=== PATIENT | male | born 1960 | race Caucasian/White ===

== ENCOUNTER → 2017-02-16 | Outpatient (CLI) | payer OTHER, SELFPAY ==
[2017-02-16 13:56] LABS: MEAN CORPUSCULAR HEMOGLOBIN 29.8 pg (27.0-33.0); MEAN CORPUSCULAR HGB CONC 33.9 g/dl (32.0-36.5); RED CELL DISTRIBUTION WIDTH 12.6 % (11.5-14.5); WHITE BLOOD COUNT 6.9 K/mm3 (4.0-10.0)
[2017-02-16 14:14] LABS: ANION GAP 8 MEQ/L (8-16); BLOOD UREA NITROGEN 15 MG/DL (7-18); CALCIUM LEVEL 8.4 MG/DL (8.5-10.1); CARBON DIOXIDE LEVEL 30 MEQ/L (21-32); CHLORIDE LEVEL 103 MEQ/L (98-107); CREATININE FOR GFR 0.91 MG/DL (0.70-1.30); GLOMERULAR FILTRATION RATE > 60.0 (>56); GLUCOSE, FASTING 92 MG/DL (70-105); POTASSIUM SERUM 3.8 MEQ/L (3.5-5.1); SODIUM LEVEL 141 MEQ/L (136-145)
== END ==
LOC: M LAB 13:34
PROVIDERS: ATTEND Internal Medicine Cardiovascular Disease
DX: I42.9 Cardiomyopathy, unspecified (principal)

== ENCOUNTER → 2017-09-05 | Outpatient (REF) | payer OTHER ==
[2017-09-05 15:09] LABS: BASO # 0.1 10^3/uL (0.0-0.2); BASO % 0.8 % (0.0-1.0); EOS # 0.2 10^3/uL (0.0-0.50); EOS % 2.9 % (0.0-3.0); IMMATURE GRANULOCYTE % 0.4 % (0-0); LYMPH # 2.2 10^3/uL (1.5-4.5); LYMPH % 27.9 % (24.0-44.0); MEAN CORPUSCULAR HEMOGLOBIN 28.7 pg (27.0-33.0); MEAN CORPUSCULAR HGB CONC 32.3 g/dl (32.0-36.5); MEAN CORPUSCULAR VOLUME 88.9 fl (80.0-96.0); MONO # 0.5 10^3/uL (0.0-0.8); MONO % 6.1 % (0.0-5.0); NEUTROPHILS # 4.9 10^3/uL (1.8-7.7); NEUTROPHILS % 61.9 % (36.0-66.0); PLATELET COUNT, AUTOMATED 247 10^3/uL (150-450); RED CELL DISTRIBUTION WIDTH 12.2 % (11.5-14.5)
[2017-09-05 15:22] LABS: ALBUMIN 3.9 GM/DL (3.2-5.2); ALBUMIN/GLOBULIN RATIO 1.44 (1.00-1.93); ALKALINE PHOSPHATASE 94 U/L (45-117); ALT/SGPT 26 U/L (12-78); ANION GAP 6 MEQ/L (8-16); AST/SGOT 12 U/L (7-37); BILIRUBIN,TOTAL 0.5 MG/DL (0.2-1.0); BLOOD UREA NITROGEN 10 MG/DL (7-18); CALCIUM LEVEL 9.3 MG/DL (8.5-10.1); CARBON DIOXIDE LEVEL 31 MEQ/L (21-32); CHLORIDE LEVEL 105 MEQ/L (98-107); CHOLESTEROL LEVEL 159 MG/DL (<200); CREATININE FOR GFR 0.86 MG/DL (0.70-1.30); GLOMERULAR FILTRATION RATE > 60.0 (>56); GLUCOSE, FASTING 95 MG/DL (70-105); POTASSIUM SERUM 4.5 MEQ/L (3.5-5.1); SODIUM LEVEL 142 MEQ/L (136-145); TOTAL PROTEIN 6.6 GM/DL (6.4-8.2); TRIGLYCERIDES LEVEL 178 MG/DL (<150)
== END ==
LOC: M SFHCSACK 09:47
PROVIDERS: ATTEND Physician Assistant
DX: E78.2 Mixed hyperlipidemia (principal); I10 Essential (primary) hypertension; Z11.59 Encounter for screening for other viral diseases; Z13.21 Encounter for screening for nutritional disorder; R97.20 Elevated prostate specific antigen [PSA]

== ENCOUNTER → 2017-12-19 | Outpatient (REF) | payer OTHER ==
[2017-12-19 14:46] LABS: BASO # 0.1 10^3/uL (0.0-0.2); BASO % 0.7 % (0.0-1.0); EOS # 0.2 10^3/uL (0.0-0.50); EOS % 2.4 % (0.0-3.0); HEMATOCRIT 43.5 % (42.0-52.0); HEMOGLOBIN 14.3 g/dl (14.0-18.0); IMMATURE GRANULOCYTE % 0.7 % (0-3.0); LYMPH # 2.3 10^3/uL (1.5-4.5); LYMPH % 26.7 % (24.0-44.0); MEAN CORPUSCULAR HEMOGLOBIN 28.8 pg (27.0-33.0); MEAN CORPUSCULAR HGB CONC 32.9 g/dl (32.0-36.5); MEAN CORPUSCULAR VOLUME 87.5 fl (80.0-96.0); MONO # 0.6 10^3/uL (0.0-0.8); MONO % 6.4 % (0.0-5.0); NEUTROPHILS # 5.6 10^3/uL (1.8-7.7); NEUTROPHILS % 63.1 % (36.0-66.0); PLATELET COUNT, AUTOMATED 193 10^3/uL (150-450); RED BLOOD COUNT 4.97 10^6/uL (4.30-6.10); RED CELL DISTRIBUTION WIDTH 12.5 % (11.5-14.5); WHITE BLOOD COUNT 8.8 10^3/uL (4.0-10.0)
[2017-12-19 15:10] LABS: ALBUMIN 4.1 GM/DL (3.2-5.2); ALBUMIN/GLOBULIN RATIO 1.24 (1.00-1.93); ALKALINE PHOSPHATASE 99 U/L (45-117); ALT/SGPT 28 U/L (12-78); ANION GAP 5 MEQ/L (8-16); AST/SGOT 18 U/L (7-37); BILIRUBIN,TOTAL 0.7 MG/DL (0.2-1.0); BLOOD UREA NITROGEN 11 MG/DL (7-18); CALCIUM LEVEL 9.1 MG/DL (8.5-10.1); CARBON DIOXIDE LEVEL 32 MEQ/L (21-32); CHLORIDE LEVEL 105 MEQ/L (98-107); CHOLESTEROL LEVEL 162 MG/DL (<200); CHOLESTEROL RISK RATIO 3.951 (<5); CREATININE FOR GFR 0.83 MG/DL (0.70-1.30); GLOMERULAR FILTRATION RATE > 60.0 (>56); GLUCOSE, FASTING 94 MG/DL (70-100); HDL CHOLESTEROL 41 MG/DL (>40); LDL CHOLESTEROL 79.8 MG/DL (<100); NON-HDL-C 121 MG/DL; POTASSIUM SERUM 4.3 MEQ/L (3.5-5.1); SODIUM LEVEL 142 MEQ/L (136-145); TOTAL 25(OH) VITAMIN D 52.8 NG/ML (30.0-100.0); TOTAL PROTEIN 7.4 GM/DL (6.4-8.2); TRIGLYCERIDES LEVEL 206 MG/DL (<150)
== END ==
LOC: M SFHCSACK 08:45
DX: I10 Essential (primary) hypertension (principal); E78.2 Mixed hyperlipidemia; E55.9 Vitamin D deficiency, unspecified

== ENCOUNTER → 2018-03-29 | Outpatient (REF) | payer OTHER ==
[2018-03-29 12:09] LABS: BASO # 0.1 10^3/uL (0.0-0.2); BASO % 0.8 % (0.0-1.0); EOS # 0.3 10^3/uL (0.0-0.50); EOS % 3.2 % (0.0-3.0); HEMATOCRIT 39.6 % (42.0-52.0); HEMOGLOBIN 13.2 g/dl (13.5-17.5); IMMATURE GRANULOCYTE % 0.8 % (0-3.0); LYMPH # 2.4 10^3/uL (1.5-4.5); LYMPH % 30.8 % (24.0-44.0); MEAN CORPUSCULAR HEMOGLOBIN 29.5 pg (27.0-33.0); MEAN CORPUSCULAR HGB CONC 33.3 g/dl (32.0-36.5); MEAN CORPUSCULAR VOLUME 88.4 fl (80.0-96.0); MONO # 0.6 10^3/uL (0.0-0.8); MONO % 7.4 % (0.0-5.0); NEUTROPHILS # 4.5 10^3/uL (1.8-7.7); PLATELET COUNT, AUTOMATED 223 10^3/uL (150-450); RED BLOOD COUNT 4.48 10^6/uL (4.30-6.10); RED CELL DISTRIBUTION WIDTH 12.3 % (11.5-14.5); WHITE BLOOD COUNT 7.9 10^3/uL (4.0-10.0)
[2018-03-29 12:37] LABS: ALBUMIN 3.9 GM/DL (3.2-5.2); ALBUMIN/GLOBULIN RATIO 1.26 (1.00-1.93); ALKALINE PHOSPHATASE 96 U/L (45-117); ALT/SGPT 23 U/L (12-78); ANION GAP 6 MEQ/L (8-16); AST/SGOT 15 U/L (7-37); BILIRUBIN,TOTAL 0.6 MG/DL (0.2-1.0); BLOOD UREA NITROGEN 14 MG/DL (7-18); CARBON DIOXIDE LEVEL 30 MEQ/L (21-32); CHLORIDE LEVEL 107 MEQ/L (98-107); CHOLESTEROL LEVEL 140 MG/DL (<200); CREATININE FOR GFR 0.94 MG/DL (0.70-1.30); GLOMERULAR FILTRATION RATE > 60.0 (>49); GLUCOSE, FASTING 96 MG/DL (70-100); HDL CHOLESTEROL 35 MG/DL (>40); NON-HDL-C 105 MG/DL; POTASSIUM SERUM 4.5 MEQ/L (3.5-5.1); PSA SCREENING 5.39 NG/ML (< 4.0); SODIUM LEVEL 143 MEQ/L (136-145); TRIGLYCERIDES LEVEL 200 MG/DL (<150)
== END ==
LOC: M SFHCADAM 09:48
DX: E78.2 Mixed hyperlipidemia (principal); I10 Essential (primary) hypertension; N40.1 Benign prostatic hyperplasia with lower urinary tract symptoms

== ENCOUNTER 2018-05-18 09:38 | Emergency (ER) | payer OTHER | END 2018-05-18 12:04 | disposition home or self-care (01) | LOC: M ED 09:38 | DX: H53.9 Unspecified visual disturbance (principal); I10 Essential (primary) hypertension; D68.59 Other primary thrombophilia; E78.00 Pure hypercholesterolemia, unspecified; K21.9 Gastro-esophageal reflux disease without esophagitis; N40.0 Benign prostatic hyperplasia without lower urinary tract symptoms; M19.90 Unspecified osteoarthritis, unspecified site; Z95.0 Presence of cardiac pacemaker; Z86.718 Personal history of other venous thrombosis and embolism; Z79.899 Other long term (current) drug therapy; Z79.82 Long term (current) use of aspirin | CPT/HCPCS: 99283 ==

== ENCOUNTER → 2018-07-08 | Outpatient (REF) | payer OTHER ==
[2018-07-08 14:57] LABS: BASO # 0.1 10^3/uL (0.0-0.2); BASO % 0.8 % (0.0-1.0); EOS # 0.3 10^3/uL (0.0-0.50); EOS % 3.7 % (0.0-3.0); HEMATOCRIT 40.3 % (42.0-52.0); HEMOGLOBIN 13.1 g/dl (13.5-17.5); IMMATURE GRANULOCYTE % 0.7 % (0-3.0); LYMPH # 2.2 10^3/uL (1.5-4.5); LYMPH % 28.3 % (24.0-44.0); MEAN CORPUSCULAR HGB CONC 32.5 g/dl (32.0-36.5); MEAN CORPUSCULAR VOLUME 89.2 fl (80.0-96.0); MONO # 0.5 10^3/uL (0.0-0.8); NEUTROPHILS # 4.5 10^3/uL (1.8-7.7); NEUTROPHILS % 59.5 % (36.0-66.0); PLATELET COUNT, AUTOMATED 229 10^3/uL (150-450); RED BLOOD COUNT 4.52 10^6/uL (4.30-6.10); RED CELL DISTRIBUTION WIDTH 12.2 % (11.5-14.5); WHITE BLOOD COUNT 7.6 10^3/uL (4.0-10.0)
[2018-07-08 15:29] LABS: ALBUMIN 4.1 GM/DL (3.2-5.2); ALBUMIN/GLOBULIN RATIO 1.46 (1.00-1.93); ALKALINE PHOSPHATASE 83 U/L (45-117); ALT/SGPT 19 U/L (12-78); ANION GAP 7 MEQ/L (8-16); AST/SGOT 14 U/L (7-37); BILIRUBIN,TOTAL 0.4 MG/DL (0.2-1.0); BLOOD UREA NITROGEN 19 MG/DL (7-18); CALCIUM LEVEL 8.8 MG/DL (8.8-10.2); CARBON DIOXIDE LEVEL 27 MEQ/L (21-32); CHLORIDE LEVEL 107 MEQ/L (98-107); CHOLESTEROL LEVEL 205 MG/DL (<200); CHOLESTEROL RISK RATIO 6.406 (<5); CREATININE FOR GFR 0.87 MG/DL (0.70-1.30); GLOMERULAR FILTRATION RATE > 60.0 (>49); GLUCOSE, FASTING 86 MG/DL (70-100); HDL CHOLESTEROL 32 MG/DL (>40); LDL CHOLESTEROL 112 MG/DL (<100); NON-HDL-C 173 MG/DL; POTASSIUM SERUM 5.5 MEQ/L (3.5-5.1); SODIUM LEVEL 141 MEQ/L (136-145); TOTAL PROTEIN 6.9 GM/DL (6.4-8.2); TRIGLYCERIDES LEVEL 305 MG/DL (<150)
[2018-07-08 15:34] LABS: TOTAL 25(OH) VITAMIN D 63.3 NG/ML (30.0-100.0)
== END ==
LOC: M SFHCSACK 08:12
DX: I10 Essential (primary) hypertension (principal); E78.2 Mixed hyperlipidemia; E55.9 Vitamin D deficiency, unspecified

== ENCOUNTER → 2018-07-30 | Outpatient (CLI) | payer OTHER | LOC: M SMT 08:57 | DX: Z53.8 Procedure and treatment not carried out for other reasons (principal) ==

== ENCOUNTER → 2018-12-18 | Outpatient (CLI) | payer OTHER ==
[~2018-12-18] MED LIST: ASPI1TAB PO; ATOR40TA75; CARV25TA; CO Q200C7 PO; ENTR1TAB4; FINA5TAB2; FURO20TA2; PANT40TA3; VITA50005
--- NOTE | 2018-12-19 02:37 | REP ---
Clinical: Cough . Comparison: 12/03/2015 . Technique: PA and lateral. Findings: The mediastinum and cardiac silhouette are normal. Pacemaker in satisfactory position The lung chew are clear and without acute consolidation, effusion, or pneumothorax. The skeletal structures are intact and normal. Impression: 1. No acute cardiopulmonary process. Electronically Signed by Chon Schultz MD 12/19/2018 02:29 A
== END ==
LOC: M WUC 16:12
PROVIDERS: ATTEND Physician Assistant
DX: R05 Cough (principal); Z95.0 Presence of cardiac pacemaker

== ENCOUNTER → 2019-01-13 | Outpatient (REF) | payer OTHER ==
[2019-01-13 14:13] LABS: BASO # 0.1 10^3/uL (0.0-0.2); BASO % 0.8 % (0.0-1.0); EOS # 0.4 10^3/uL (0.0-0.50); HEMATOCRIT 41.3 % (42.0-52.0); HEMOGLOBIN 13.4 g/dl (13.5-17.5); LYMPH # 2.3 10^3/uL (1.5-4.5); LYMPH % 26.1 % (24.0-44.0); MEAN CORPUSCULAR HEMOGLOBIN 28.7 pg (27.0-33.0); MEAN CORPUSCULAR HGB CONC 32.4 g/dl (32.0-36.5); MEAN CORPUSCULAR VOLUME 88.4 fl (80.0-96.0); MONO # 0.5 10^3/uL (0.0-0.8); MONO % 5.8 % (0.0-5.0); NEUTROPHILS # 5.4 10^3/uL (1.8-7.7); NEUTROPHILS % 61.4 % (36.0-66.0); PLATELET COUNT, AUTOMATED 231 10^3/uL (150-450); RED BLOOD COUNT 4.67 10^6/uL (4.30-6.10); WHITE BLOOD COUNT 8.8 10^3/uL (4.0-10.0)
[2019-01-13 14:24] LABS: ALBUMIN 3.8 GM/DL (3.2-5.2); ALT/SGPT 20 U/L (12-78); BILIRUBIN,TOTAL 0.4 MG/DL (0.2-1.0); BLOOD UREA NITROGEN 16 MG/DL (7-18); CALCIUM LEVEL 8.5 MG/DL (8.8-10.2); CARBON DIOXIDE LEVEL 29 MEQ/L (21-32); CHLORIDE LEVEL 109 MEQ/L (98-107); CHOLESTEROL LEVEL 230 MG/DL (<200); CHOLESTEROL RISK RATIO 6.216 (<5); GLOMERULAR FILTRATION RATE > 60.0 (>49); GLUCOSE, FASTING 99 MG/DL (70-100); HDL CHOLESTEROL 37 MG/DL (>40); LDL CHOLESTEROL 130 MG/DL (<100); NON-HDL-C 193 MG/DL; POTASSIUM SERUM 4.4 MEQ/L (3.5-5.1); SODIUM LEVEL 143 MEQ/L (136-145); TOTAL PROTEIN 6.8 GM/DL (6.4-8.2); TRIGLYCERIDES LEVEL 315 MG/DL (<150)
[2019-01-13 14:31] LABS: TOTAL 25(OH) VITAMIN D 58.7 NG/ML (30.0-100.0)
[2019-01-14 14:53] LABS: PSA % FREE 16.3 % (.); PSA FREE 0.78 ng/mL; PSA TOTAL 4.8 ng/mL (0.0-4.0)
== END ==
LOC: M SFHCSACK 08:38
PROVIDERS: ATTEND Physician Assistant
DX: E78.2 Mixed hyperlipidemia (principal); R97.20 Elevated prostate specific antigen [PSA]; E55.9 Vitamin D deficiency, unspecified; N42.9 Disorder of prostate, unspecified

== ENCOUNTER → 2019-03-28 | Outpatient (CLI) | payer OTHER ==
[~2019-03-28] MED LIST changes: -ASPI1TAB PO; +ASPI81TA26 PO; -CO Q200C7 PO; +COQ1200C3 PO
[2019-03-28 20:10] LABS: BASO # 0.1 10^3/uL (0.0-0.2); BASO % 0.6 % (0.0-1.0); EOS # 0.3 10^3/uL (0.0-0.50); EOS % 3.4 % (0.0-3.0); HEMATOCRIT 38.5 % (42.0-52.0); HEMOGLOBIN 12.7 g/dl (13.5-17.5); LYMPH # 2.7 10^3/uL (1.5-4.5); LYMPH % 31.7 % (24.0-44.0); MEAN CORPUSCULAR HEMOGLOBIN 29.5 pg (27.0-33.0); MEAN CORPUSCULAR VOLUME 89.5 fl (80.0-96.0); MONO # 0.6 10^3/uL (0.0-0.8); MONO % 7.2 % (0.0-5.0); NEUTROPHILS # 4.7 10^3/uL (1.8-7.7); NEUTROPHILS % 56.5 % (36.0-66.0); PLATELET COUNT, AUTOMATED 236 10^3/uL (150-450); WHITE BLOOD COUNT 8.4 10^3/uL (4.0-10.0)
== END ==
LOC: M WUC 17:12
PROVIDERS: ATTEND Physician Assistant
DX: L04.0 Acute lymphadenitis of face, head and neck (principal)

== ENCOUNTER → 2019-07-30 | Outpatient (REF) | payer OTHER ==
[2019-07-30 14:28] LABS: BASO # 0.1 10^3/uL (0.0-0.2); BASO % 0.7 % (0.0-1.0); EOS # 0.3 10^3/uL (0.0-0.5); EOS % 2.9 % (0.0-3.0); HEMATOCRIT 40.2 % (42.0-52.0); HEMOGLOBIN 13.4 g/dl (13.5-17.5); LYMPH # 2.5 10^3/uL (1.5-5.0); LYMPH % 28.7 % (24.0-44.0); MEAN CORPUSCULAR HEMOGLOBIN 29.6 pg (27.0-33.0); MEAN CORPUSCULAR HGB CONC 33.3 g/dl (32.0-36.5); MEAN CORPUSCULAR VOLUME 88.9 fl (80.0-96.0); MONO # 0.5 10^3/uL (0.0-0.8); MONO % 6.3 % (0.0-5.0); NEUTROPHILS # 5.1 10^3/uL (1.5-8.5); NEUTROPHILS % 60.1 % (36.0-66.0); PLATELET COUNT, AUTOMATED 247 10^3/uL (150-450); RED BLOOD COUNT 4.52 10^6/uL (4.30-6.10); WHITE BLOOD COUNT 8.6 10^3/uL (4.0-10.0)
[2019-07-30 14:39] LABS: ALBUMIN 3.9 GM/DL (3.2-5.2); ALT/SGPT 19 U/L (12-78); BILIRUBIN,TOTAL 0.5 MG/DL (0.2-1.0); BLOOD UREA NITROGEN 15 MG/DL (7-18); CARBON DIOXIDE LEVEL 31 MEQ/L (21-32); CHLORIDE LEVEL 103 MEQ/L (98-107); CHOLESTEROL LEVEL 206 MG/DL (<200); CHOLESTEROL RISK RATIO 5.722 (<5); CREATININE FOR GFR 0.95 MG/DL (0.70-1.30); GLOMERULAR FILTRATION RATE > 60.0 (>49); GLUCOSE, FASTING 86 MG/DL (70-100); HDL CHOLESTEROL 36 MG/DL (>40); LDL CHOLESTEROL 117 MG/DL (<100); NON-HDL-C 170 MG/DL; POTASSIUM SERUM 4.1 MEQ/L (3.5-5.1); SODIUM LEVEL 141 MEQ/L (136-145); TOTAL PROTEIN 6.9 GM/DL (6.4-8.2); TRIGLYCERIDES LEVEL 263 MG/DL (<150)
[2019-07-30 14:41] LABS: TOTAL 25(OH) VITAMIN D 67.2 NG/ML (30.0-100.0)
== END ==
LOC: M SFHCSACK 08:12
PROVIDERS: ATTEND Physician Assistant
DX: I10 Essential (primary) hypertension (principal); E78.2 Mixed hyperlipidemia; E55.9 Vitamin D deficiency, unspecified

== ENCOUNTER → 2019-09-19 | Outpatient (CLI) | payer OTHER ==
--- NOTE | 2019-09-23 19:26 | SLEEPHOME ---
DATE OF PROCEDURE: 09/19/2019 ORDERED BY : Renay Espino Diagnostic home sleep testing was performed due to concern for the obstructive sleep apnea syndrome in this patient with history of excessive somnolence and nonrestorative sleep. He has comorbidities of hypertension and cardiomyopathy. For testing a nocturnal T3 respiratory monitoring device was used. Continuous record was made of pulse, oxygen saturation, airflow, chest, abdominal strain and body position. 9 hours and 59 minutes of data were reviewed. There were 8 hours and 25 minutes marked as time in bed. During the interval marked time in bed there 90 respiratory events identified of 10 seconds in duration or greater for respiratory event index of 10.7. The events were primarily obstructive at 12 mixed central apneas were seen. Baseline pulse rate of 64 beats per minute, pulse rate ranged 59-92. Baseline saturation 92% saturations fell to 85%. Testing was performed in both the supine and nonsupine positions. IMPRESSION: Abnormal home sleep testing with repetitive respiratory events and oxygen desaturations to 85% with a respiratory event index of 10.7 is consistent with the obstructive sleep apnea syndrome. RECOMMENDATIONS: The patient should be encouraged to undergo formal sleep evaluation.
== END ==
LOC: M SLEEP HO 12:42
PROVIDERS: ATTEND Nurse Practitioner Family
DX: R40.0 Somnolence (principal)

== ENCOUNTER → 2020-08-16 | Outpatient (CLI) | payer OTHER ==
[~2020-08-16] MED LIST changes: +PANT40TA29; -PANT40TA3
[2020-08-16 07:51] LABS: ALBUMIN 3.8 GM/DL (3.2-5.2); ALT/SGPT 16 U/L (12-78); BILIRUBIN,TOTAL 0.4 MG/DL (0.2-1.0); BLOOD UREA NITROGEN 15 MG/DL (7-18); CARBON DIOXIDE LEVEL 29 MEQ/L (21-32); CHLORIDE LEVEL 108 MEQ/L (98-107); CHOLESTEROL LEVEL 222 MG/DL (<200); CREATININE FOR GFR 0.94 MG/DL (0.70-1.30); GLOMERULAR FILTRATION RATE > 60.0 (>49); GLUCOSE, FASTING 95 MG/DL (70-100); HDL CHOLESTEROL 37 MG/DL (>40); LDL CHOLESTEROL 139 MG/DL (<100); NON-HDL-C 185 MG/DL; POTASSIUM SERUM 4.2 MEQ/L (3.5-5.1); PROSTATIC SPECIFIC AG MONITOR 5.59 NG/ML (< 4.00); SODIUM LEVEL 142 MEQ/L (136-145); TOTAL PROTEIN 6.9 GM/DL (6.4-8.2); TRIGLYCERIDES LEVEL 232 MG/DL (<150)
[2020-08-16 10:50] LABS: TOTAL 25(OH) VITAMIN D 71.8 NG/ML (30.0-100.0)
== END ==
LOC: M LAB 06:53
PROVIDERS: ATTEND Family Medicine
DX: E55.9 Vitamin D deficiency, unspecified (principal); E78.2 Mixed hyperlipidemia; R97.20 Elevated prostate specific antigen [PSA]; I10 Essential (primary) hypertension

== ENCOUNTER 2021-08-08 15:59 | Emergency (ER) | payer OTHER ==
[~2021-08-08] VITALS: Ht 177.8 cm; Wt 94.5 kg
--- OUTSIDE RECORDS SUMMARY | 2021-08-08 16:06 | CCD ---
Author Author [facility] Organization [facility] Address Unknown Phone Unavailable Care Team Providers Care Inspector [employer] Name Role Phone ARIANA, GOLDIE GABE STAVE BOLT EQUALIZER-C Unavailable Unavailable ARIANA, GOLDIE GABE STAVE BOLT EQUALIZER-C Unavailable Unavailable ARIANA, GOLDIE GABE STAVE BOLT EQUALIZER-C Unavailable Unavailable ARIANA, GOLDIE GABE STAVE BOLT EQUALIZER-C Unavailable Unavailable ARIANA, GOLDIE GABE STAVE BOLT EQUALIZER-C Unavailable Unavailable ARIANA, GOLDIE GABE STAVE BOLT EQUALIZER-C Unavailable Unavailable ARIANA, GOLDIE GABE STAVE BOLT EQUALIZER-C Unavailable Unavailable ARIANA, GOLDIE GABE STAVE BOLT EQUALIZER-C Unavailable Unavailable ARIANA, GOLDIE GABE STAVE BOLT EQUALIZER-C Unavailable Unavailable ARIANA, GOLDIE GABE STAVE BOLT EQUALIZER-C Unavailable Unavailable ARIANA, GOLDIE GABE STAVE BOLT EQUALIZER-C Unavailable Unavailable ARIANA, GOLDIE GABE STAVE BOLT EQUALIZER-C Unavailable Unavailable ARIANA, GOLDIE GABE STAVE BOLT EQUALIZER-C Unavailable Unavailable ARIANA, GOLDIE GABE STAVE BOLT EQUALIZER-C Unavailable Unavailable ARIANA, GOLDIE GABE STAVE BOLT EQUALIZER-C Unavailable Unavailable ARIANA, GOLDIE GABE STAVE BOLT EQUALIZER-C Unavailable Unavailable ARIANA, GOLDIE GABE STAVE BOLT EQUALIZER-C Unavailable Unavailable Fons, M Jyothi STAVE BOLT EQUALIZER Unavailable Unavailable Fons, M Jyothi STAVE BOLT EQUALIZER Unavailable Unavailable Fons, M Jyothi STAVE BOLT EQUALIZER Unavailable Unavailable Fons, M Jyothi STAVE BOLT EQUALIZER Unavailable Unavailable Fons, M Jyothi STAVE BOLT EQUALIZER Unavailable Unavailable Fons, M Jyothi STAVE BOLT EQUALIZER Unavailable Unavailable Fons, M Jyothi STAVE BOLT EQUALIZER Unavailable Unavailable Fons, M Jyothi STAVE BOLT EQUALIZER Unavailable Unavailable Fons, M Jyothi STAVE BOLT EQUALIZER Unavailable Unavailable Fons, M Jyothi STAVE BOLT EQUALIZER Unavailable Unavailable Fons, M Jyothi STAVE BOLT EQUALIZER Unavailable Unavailable Fons, M Jyothi STAVE BOLT EQUALIZER Unavailable Unavailable Fons, M Jyothi STAVE BOLT EQUALIZER Unavailable Unavailable Fons, M Jyothi STAVE BOLT EQUALIZER Unavailable Unavailable Fons, M Jyothi STAVE BOLT EQUALIZER Unavailable Unavailable Fons, M Jyothi STAVE BOLT EQUALIZER Unavailable Unavailable Fons, M Jyothi STAVE BOLT EQUALIZER Unavailable Unavailable Fons, M Jyothi STAVE BOLT EQUALIZER Unavailable Unavailable Fons, M Jyothi STAVE BOLT EQUALIZER Unavailable Unavailable Fons, M Jyothi STAVE BOLT EQUALIZER Unavailable Unavailable Fons, M Jyothi STAVE BOLT EQUALIZER Unavailable Unavailable Fons, M Jyothi STAVE BOLT EQUALIZER Unavailable Unavailable Fons, M Jyothi STAVE BOLT EQUALIZER Unavailable Unavailable Fons, M Jyothi STAVE BOLT EQUALIZER Unavailable Unavailable Fons, M Jyothi STAVE BOLT EQUALIZER Unavailable Unavailable Fons, M Jyothi STAVE BOLT EQUALIZER Unavailable Unavailable Fons, M Jyothi STAVE BOLT EQUALIZER Unavailable Unavailable Fons, M Jyothi STAVE BOLT EQUALIZER Unavailable Unavailable Fons, M Jyothi STAVE BOLT EQUALIZER Unavailable Unavailable Fons, M Jyothi STAVE BOLT EQUALIZER Unavailable Unavailable Fons, M Jyothi STAVE BOLT EQUALIZER Unavailable Unavailable Fons, M Jyothi STAVE BOLT EQUALIZER Unavailable Unavailable Fons, M Jyothi STAVE BOLT EQUALIZER Unavailable Unavailable Fons, M Jyothi STAVE BOLT EQUALIZER Unavailable Unavailable Fons, M Jyothi STAVE BOLT EQUALIZER Unavailable Unavailable Fons, M Jyothi STAVE BOLT EQUALIZER Unavailable Unavailable Fons, M Jyothi STAVE BOLT EQUALIZER Unavailable Unavailable Fons, M Jyothi STAVE BOLT EQUALIZER Unavailable Unavailable Fons, M Jyothi STAVE BOLT EQUALIZER Unavailable Unavailable Fons, M Jyothi STAVE BOLT EQUALIZER Unavailable Unavailable Fons, M Jyothi STAVE BOLT EQUALIZER Unavailable Unavailable Fons, M Jyothi STAVE BOLT EQUALIZER Unavailable Unavailable Fons, M Jyothi STAVE BOLT EQUALIZER Unavailable Unavailable Fons, M Jyothi STAVE BOLT EQUALIZER Unavailable Unavailable Fons, M Jyothi STAVE BOLT EQUALIZER Unavailable Unavailable Fons, M Jyothi STAVE BOLT EQUALIZER Unavailable Unavailable Fons, M Jyothi STAVE BOLT EQUALIZER Unavailable Unavailable Fons, M Jyothi STAVE BOLT EQUALIZER Unavailable Unavailable Fons, M Jyothi STAVE BOLT EQUALIZER Unavailable Unavailable Fons, M Jyothi STAVE BOLT EQUALIZER Unavailable Unavailable Fons, M Jyothi STAVE BOLT EQUALIZER Unavailable Unavailable Fons, M Jyothi STAVE BOLT EQUALIZER Unavailable Unavailable Fons, M Jyothi STAVE BOLT EQUALIZER Unavailable Unavailable Re-disclosure Warning The records that you are about to access may contain information from federally-assisted alcohol or drug abuse programs. If such information is present, then the following federally mandated warning applies: This information has been disclosed to you from records protected by federal confidentiality rules (42 CFR part 2). The federal rules prohibit you from making any further disclosure of this information unless further disclosure is expressly permitted by the written consent of the person to whom it pertains or as otherwise permitted by 42 CFR part 2. A general authorization for the release of medical or other information is NOT sufficient for this purpose. The Federal rules restrict any use of the information to criminally investigate or prosecute any alcohol or drug abuse patient.The records that you are about to access may contain highly sensitive health information, the redisclosure of which is protected by Article 27-F of the [facility] Public Health law. If you continue you may have access to information: Regarding HIV / AIDS; Provided by facilities licensed or operated by the [facility] Office of Mental Health; or Provided by the [facility] Office for People With Developmental Disabilities. If such information is present, then the following [facility] mandated warning applies: This information has been disclosed to you from confidential records which are protected by state law. State law prohibits you from making any further disclosure of this information without the specific written consent of the person to whom it pertains, or as otherwise permitted by law. Any unauthorized further disclosure in violation of state law may result in a fine or nursing home sentence or both. A general authorization for the release of medical or other information is NOT sufficient authorization for further disc losure. Family History Family Member Name Family Member Gender Family Member Status Date o f Status Description Data Source(s) Unknown Unknown Problem [facility] ([facility]) Unknown Female Unknown Female Encounters Encounter Providers Location Date Indications Data Source(s ) Outpatient ERNESTO-MERT 06/16/2021 01:08 :59 PM EDT - 06/16/2021 01:28:17 PM EDT [facility] Outpatient Attender: Jyothi OROZCO-SJMEG 12:00:00 AM EDT - 04/29/2021 08:21:[address] [facility] [place] [address] [address] 04/22/2021 12:00:00 AM EDT eCW1 ([facility]) Outpatient Attender: GABE Bernal/Juan [place] 03/10/2021 10:15:00 AM EDT MEDENT ([facility] ) Outpatient MERT.ANA 03/05/2021 06:14:58 PM EDT [facility] Outpatient MERT.ANA.NGA 03/03/2021 12:03:30 PM EDT [facility] Unknown [address] [address] 02/15/2021 12:00:00 AM EDT eCW1 ([facility]) Outpatient [address] [address] 02/10/2021 12:00:00 AM EDT eCW1 ([facility]) Outpatient Attender: Jyothi DOZIER 1 12:00:00 AM EST - 12/24/2020 08:38:[address] [facility] Outpatient SJNENGA 11/04/2020 11:56 :31 AM EST - 11/04/2020 12:14:57 PM EST [facility] Outpatient Attender: Jyothi LAINGA 0 12:00:00 AM EST - 09/23/2020 08:56:[address] [facility] [place] [address] [address] 08/16/2020 12:00:00 AM EST eCW1 ([facility]) Out[place] [address] [address] 08/11/2020 12:00:00 AM EDT eCW1 ([facility]) Unknown [address] [address] 07/26/2020 12:00:00 AM EDT eCW1 ([facility]) Outpatient MINGNGA 06/17/2020 11:20 :01 AM EDT - 06/17/2020 11:36:09 AM EDT [facility] Immunizations Vaccine Date Status Description Data Source(s) COVID-19 VACCINE Moderna 01/11/2021 12:00:00 AM EDT completed [facility] Vaccine Series Complete: YESThis Data wa s Submitted to [facility] Via [facility]. COVID-19 dose #2 given elsewhere Unspecified 01/10/2021 08:2 0:00 AM EDT completed eCW1 ([facility]) COVID-19 dose #2 given elsewhere Unspecified 01/10/2021 08:2 0:00 AM EDT completed eCW1 ([facility]) COVID-19 dose #2 given elsewhere Unspecified 01/10/2021 08:2 0:00 AM EDT completed eCW1 ([facility]) COVID-19 VACCINE Moderna 12/14/2020 12:00:00 AM EST completed [facility] Vaccine Series Complete: NOThis Data was Submitted to [facility] Via [employer]. COVID-19 dose #1 given elsewhere Unspecified 12/13/2020 08:1 9:00 AM EST completed eCW1 ([facility]) COVID-19 dose #1 given elsewhere Unspecified 12/13/2020 08:1 9:00 AM EST completed eCW1 ([facility]) COVID-19 dose #1 given elsewhere Unspecified 12/13/2020 08:1 9:00 AM EST completed eCW1 ([facility]) Zoster 50mcg/0.5mL Shingrix 08/11/2020 09:06:00 AM EDT completed eCW1 ([facility]) Zoster 50mcg/0.5mL Shingrix 08/11/2020 09:06:00 AM EDT completed eCW1 ([facility]) Zoster 50mcg/0.5mL Shingrix 08/11/2020 09:06:00 AM EDT completed eCW1 ([facility]) Zoster 50mcg/0.5mL (Shingrix) 08/11/2020 09:06:00 AM EDT completed eCW1 ([facility]) Zoster 50mcg/0.5mL (Shingrix) 08/11/2020 09:06:00 AM EDT completed eCW1 ([facility]) IIV3. This is one of two codes replacing CVX 15, which is being retired. 07/20/2020 09:07:00 AM EDT completed eCW1 ([facility]) IIV3. This is one of two codes replacing CVX 15, which is being retired. 07/20/2020 09:07:00 AM EDT completed eCW1 ([facility]) IIV3. This is one of two codes replacing CVX 15, which is being retired. 07/20/2020 09:07:00 AM EDT completed eCW1 ([facility]) IIV3. This is one of two codes replacing CVX 15, which is being retired. 07/20/2020 09:07:00 AM EDT completed eCW1 ([facility]) IIV3. This is one of two codes replacing CVX 15, which is being retired. 07/20/2020 09:07:00 AM EDT completed eCW1 ([facility]) Medications Medication Brand Name Start Date Product Form Dose Route Admi nistrative Instructions Pharmacy Instructions Status Indications Reaction Description Data Source(s) Furosemide 20 MG Oral Tablet furosemide (LASIX) 20 MG tablet furosemide (LASIX) 20 MG tablet 04/29/2021 12:00:00 AM EDT 20 mg Oral activ e Take 1 tablet (20 mg total) by mouth daily [facility] Furosemide 20 MG Oral Tablet furosemide (LASIX) 20 MG tablet furosemide (LASIX) 20 MG tablet 04/14/2021 12:00:00 AM EDT abort ed Take 1 tablet by mouth once daily [facility] carvedilol 25 MG Oral Tablet carvedilol (COREG) 25 MG tablet carvedilol (COREG) 25 MG tablet 04/14/2021 12:00:00 AM EDT activ e Take 1 tablet by mouth twice daily [facility] ezetimibe 10 MG / Simvastatin 10 MG Oral Tablet Ezetimibe-Si mvastatin 03/10/2021 12:00:00 AM EDT ORAL active M EDENT ([facility]) ezetimibe 10 MG Oral Tablet ezetimibe (ZETIA) 10 MG ta blet ezetimibe (ZETIA) 10 MG tablet 01/20/2021 12:00:00 AM EDT active Take 1 tablet by mouth once daily [facility] Covid-19 vaccine, Unspecified 01/11/2021 12:00:00 AM EDT completed MEDENT ([facility], ) Medication administered onsite Furosemide 20 MG Oral Tablet furosemide (LASIX) 20 MG tablet furosemide (LASIX) 20 MG tablet 12/24/2020 12:00:00 AM EST 20 mg Oral activ e Take 1 tablet (20 mg total) by mouth daily [facility] ezetimibe 10 MG Oral Tablet ezetimibe (ZETIA) 10 MG ta blet ezetimibe (ZETIA) 10 MG tablet 12/24/2020 12:00:00 AM EST 10 mg Oral active Take 1 tablet (10 mg total) by mouth daily [facility] ezetimibe 10 MG Oral Tablet ezetimibe (ZETIA) 10 MG ta blet ezetimibe (ZETIA) 10 MG tablet 12/16/2020 12:00:00 AM EST aborted Take 1 tablet by mouth once daily [facility] Covid-19 vaccine, Unspecified 12/14/2020 12:00:00 AM EST completed MEDENT ([facility], ) Medication administered onsite ezetimibe 10 MG Oral Tablet ezetimibe (ZETIA) 10 MG ta blet ezetimibe (ZETIA) 10 MG tablet 09/23/2020 12:00:00 AM EST 10 mg Oral active Take 1 tablet (10 mg total) by mouth daily [facility] Furosemide 20 MG Oral Tablet furosemide (LASIX) 20 MG tablet furosemide (LASIX) 20 MG tablet 09/23/2020 12:00:00 AM EST 20 mg Oral abort ed Take 1 tablet (20 mg total) by mouth daily [facility] sacubitril 97 MG / valsartan 103 MG Oral Tablet [Entresto] ENTRESTO 97-103 MG TABS ENTRESTO 97-103 MG TABS 09/23/2020 12:00:00 AM EST 1 {tbl} Oral active Take 1 tablet by mouth 2 (two) t imes a day [facility] sacubitril 97 MG / valsartan 103 MG Oral Tablet [Entresto] ENTRESTO 97-103 MG TABS ENTRESTO 97-103 MG TABS 05/11/2020 12:00:00 AM EDT 1 {tbl} Oral aborted Take 1 tablet by mouth 2 (two) t imes a day [facility] Furosemide 20 MG Oral Tablet furosemide (LASIX) 20 MG tablet furosemide (LASIX) 20 MG tablet 03/09/2020 12:00:00 AM EDT 20 mg Oral abort ed Take 1 tablet (20 mg total) by mouth daily [facility] [place]-3 Acid Ethyl Esters (GROUP HOME) 1000 MG Oral Capsule omega-3 acid ethyl esters (LOVAZA) 1 g capsule omega-3 acid ethyl esters (LOVAZA) 1 g capsule 2 g Oral aborted Take 2 g by mouth da memo [facility] Insurance Providers Payer name Policy type / Coverage type Policy ID Covered libertarian ID Covered libertarian's relationship to miles Policy Miles Plan Information BCBS AGUEDA QUEZADA PPO 302/307 [id number] SP [id number] [facility] [id number] SP [id number] MVP HEALTH CARE [id number] SP [id number] MVP H [id number] Self [id number] MVP [id number] MVP [id number] Chayo [id number] 200 MVP PREMIER EXCHANGE [id number] Chayo [id number] MVP [id number] Chayo [id number] 200 MVP HEALTH CARE [id number] SP [id number] MVP HEALTH CARE [id number] SP [id number] SELF PAY ONLY [id number] SP [id number] MVP HEALTH CARE O [id number] S [id number] MVP Commercial [id number] Self MVP (pr) Commercial [id number] Self MVP Health Care Health Maintenance Organization (HMO) [id number] Self BCBS [place] PPO 302/307 [id number] SP [id number] [facility] [id number] SP [id number] [facility] [id number] 80 [id number] [place] [employer] Commercial [id number] Self [id number] ANSI-Commercial [id number] ANSI-Commercial [id number] ANSI-Commercial [id number] ANSI-Commercial [id number] ANSI-Commercial [id number] ANSI-Commercial [id number] ANSI-Commercial [id number] Problems, Conditions, and Diagnoses Code Display Name Description Problem Type Effective Dates Data Source(s) G47.33 Obstructive sleep apnea (adult) (pediatr ic) Obstructive sleep apnea (adult) (pediatr Diagnosis 04/29/2021 07:48:38 AM EDT [facility] I44.7 Left bundle-branch block, unspecified Le ft bundle-branch block, unspecified Diagnosis 04/29/2021 07:48:38 AM EDT [facility] D68.51 Activated protein C resistance Activated protein C res istance Diagnosis 04/29/2021 07:48:38 AM EDT [facility] E78.00 Pure hypercholesterolemia, unspecified P ure hypercholesterolemia, unspecified Diagnosis 04/29/2021 07:48:38 AM EDT [facility] R06.00 Dyspnea, unspecified Dyspnea, unspecified Diagnosis 04/29/2021 07:48:38 AM EDT [facility] I50.22 Chronic systolic (congestive) heart fail ure Chronic systolic (congestive) heart fail Diagnosis 04/29/2021 07:48:38 AM EDT [facility] I42.8 Other cardiomyopathies Other cardiomyopathies Diagnosi s 04/29/2021 07:48:38 AM EDT [facility] 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 Presence of automatic (implantable) card Diagnosis 12/24/2020 07:52:17 AM EST [facility] I42.0 Dilated cardiomyopathy Dilated cardiomyopathy Diagnosi s 09/23/2020 07:56:58 AM EST [facility] R06.00 ROJAS (dyspnea on exertion) ROJAS (dyspnea on exertion) [id number] 09/23/2020 12:00:00 AM EST [facility] Surgeries/Procedures Procedure Description Date Indications Data Source(s) ECG ROUTINE ECG W/LEAST 12 LDS W/I&R <td>POCT AMB EKG</td><td>Routine</td><td>09/23/2020 9:05 AM EST</td><td> Nonischemic cardiomyopathy</td><td> </td> 09/23/2020 02:05:00 PM EST Nonischemic cardiomyopathy [facility] Nonischemic cardiomyopathy HEPATIC FUNCTION PANEL <td>HEPATIC FUNCTION PANEL</td><td>Routine</td><td>08/25/2020</td><td></td><td> </td> 08/25/2020 12:00:00 AM EST [facility] LIPID PANEL <td>LIPID PANEL</td><td>Rout ine</td><td>08/25/2020</td><td></td><td> </td> 08/25/2020 12:00:00 AM EST [facility] BASIC METABOLIC PANEL CALCIUM TOTAL <td>BASIC METABOLI C PANEL</td><td>Routine</td><td>08/25/2020</td><td></td><td> </td> 08/25/2020 12:00:00 AM EST [facility] Results ID Date Data Source [id number] 06/17/2021 10:51:04 AM EDT [facility] Name Value Range Interpretation Code Description Data Candice rce(s) Supporting Document(s) &PDF [facility] RQBZDf7sGpWZVnGy06/JMXpuECBqd6YpPPhkWZu8BXvgRELsZ8KiaOakZWrKHLCSY7MXNYBDJ80NOwEN vci [file] GsOABPTf/5+HxBV++f//telephone operators supervisor+034qAIYrU6D3TKc+UnQ3HoFB/qINK2VXh+n//00jJNyAQAuzAC3qoX7K 1A58vppyXZHt9nU7Qz+BAr0+J/+lQwX8f/8Hg3/ZUI C0i9FZcMvBN7VXU6hXt/zlX90pdG3oTOMYVZ4GNM1CSY1io1DjHVPrRFmtfbJuUjrZTzBaYGGmo1QkPN l9DV9CKVUbQVlfIK2BL2NlCRA5J2M8KwX5oCJzEJ7eQ5DlHvOfRR7hjUp3V4GezTHBUFOSg99mc10mfy BoSK9Qd6kfiwQwCBSkW7YrxddcTVVCSx2McQS9zTKs Hg0MLNgyrXZoIJYvQLRvY6OeRWPhOX0HaZn3MIHfPx2JxOZ9GIYfB33fDL5PLnBjU7UGZDNhIBV2WZOz UiANCj4+CQruxAYiIV0QLgnR+///PwMYBGRUQBADbvAfDECKEyqIV4+pEUtcpY3wPh9XKtDpfv+hoYFE /xaQqJ64+ELWghQFHqjRgTV+AKnpkbygV2eGEkxlk2 gyU4Rq5oUR0JFpFypzAqHIdvBy+WDgHNFIJ1c9KVthiuJooQSnQM4YKvJqZV4akm6NRuDiTQPlLkwYUm wtCWsuvmCgDfxRErZuFNVzKrgZJge6PWtdPF6Hkh1qU7J9IFfkAVCUV4LqbXKlUL5zC7KXJ2tcXIaqUk 7MPoLlK6WpivWfWZosR5VjOVUwIIBfHv0EVKPyHT0H FXMgLaCdDLAGGtPtRTEcCfZbEFsoBUYTHMyqGCYnD9UpNEPhYETuXs5RAHGxMJ4ACHZqUYBoZVU+Pg0K YKOtSV0gcjRtvSK4QJBqsX0hVNMeODKhLFMBReLbHKYqnP5xXULdUzGrCLSUQrImSDIfjC5lTiVyYuIx EXEREeLcPFWsfZ1zSgUlENJlEWEAYeYxTETftJ4fIS GiYRNlWHVTDhEcEEAstL0sMTYoVCJaEKF+Xs9ZQHUgOOq9V1K4HDUyJWo6F2ILW3ZTNNLrBGljPTupWL ZrKAh7E2M2PRNlT4ZHA3Ghubmgar3+GK5OS59ANWTwOVp2L9B3jPDmZ9E0rOgJfTJ9RA1UTO0WwSo7qG BseT4+SB4HC0DFOnEsKIl4L9J6nSUrH7H5kWtXaVH0 RA4COO2NzMIbMBQuovRjYk5cU0UEOUcAXtPLCQA0UD3WkWZgWX4BpVQPJ5McqDApQo0gVYwttBVyjS4h Vk6rSOopKX3ONnLPRWwZTTU1PZ2LxCAlBU6PqSBWN9JyrNFwMw6tXAnxuEIasu6+NK0CCDLoIo2NYu4+ EFsevlPyOfbBXfDfAFZeg4NnHXp0HI4DMI6egOnaIK C0Hz9PbSJ0aYRtY2xODK1FpJHnE44ckBLsNBTdVp4SGqR3zpRelW8IGG83wCMxn6T1SCPzE9bbKQerh8 7mWSymOBzNLN9fCYRXOLpfYJvxEYE8CgQqtvynQAWuPe9RXuLkFXl4gU5mqTM0XML4LdfudSUjNAcyVa WyKtKiVzX1hDnwdwx9KMrlPL8aPJnwecroTAIwZmc+ EUhyAESeYJKoDsbKAYEriG4rqtH2jrVuTRcmhURhPa8fv4f0DikbBy7rJc3qTAd2UvHrZfPtFWWzMu7p oE10WZbmoxEdGn9RJcQjSBF4T7QcDzlKRBW+YHlgWYhhrQd2fIDvEYPhPl5KGEDnSEDcJIJkQGMeIEGe ICAgICAgICAgICAgICAgICAgICAgICAgICAgICAgIC BhMDCtRTAkTPEoVJNwIUQvRSCeKFDjDAGuMQDoXSZzOUExZKVlIWSlHGZjWTGhBSKnZTHsFF1XJDCzOX AgICAgICAgICAgICAgICAgICAgICAgICAgICAgICAgICAgICAgICAgICAgICAgICAgICAgICAgICAgIC AgICAgICAgICAgICAgICAgICAgICAgICAgICAgICAg CLObNU2RRGRuPWOsBMMyKRImIVDvMXMiOKPqSJEkZWJcLFHkRYAiGGJuVFLdGGNcDDBaBHDrUXLrAPUu SMDcCWMfWMHgWEVjSRFkCKBfIERmTPBmXVScAMJrSHRtWKSdEEIoOVBqJCCyHX7RFPBfFQLiCLOiXUKy ICAgICAgICAgICAgICAgICAgICAgICAgICAgICAgIC WvAKAbMGCmGUFqBYNlJRRzJLUkDEOxSBRwMAOlDOLaYKEbKRTfSOGhQGSlRDRzCCLiOJLsMUZbUV4GAY AgICAgICAgICAgICAgICAgICAgICAgICAgICAgICAgICAgICAgICAgICAgICAgICAgICAgICAgICAgIC AgICAgICAgICAgICAgICAgICAgICAgICAgICAgICAg NTXvMNHdYF5NOLRiLXPjGTOgGYGaHGQkTPCwTWTrVBXfSXAuCMLcNMMmYUEtHKTyNADcIIJySHTcBWTi DWCxKBXnFWHwNNYxPKGfTCNcGMWyPMGaPONiMOKeULKwAYRuQMDyWXZyPNPfFTUnFH5FYWYtSCSiBRAw ICAgICAgICAgICAgICAgICAgICAgICAgICAgICAgIC AgICAgICAgICAgICAgICAgICAgICAgICAgICAgICAgICAgICAgICAgICAgICAgICAgICAgICAgICAgIA 0KICAgICAgICAgICAgICAgICAgICAgICAgICAgICAgICAgICAgICAgICAgICAgICAgICAgICAgICAgIC AgICAgICAgICAgICAgICAgICAgICAgICAgICAgICAg PGDoMJPtOFYdMP3DRGGlAAFpBHQnCDFfCCMaCZRcHTJkFCSvYEByOUNyGCSgIPMdHCOjPJPlIJEyQLAf YZNbUELnNIPhESNfSURfLLJoIGIiFSMbZUThNPAaGGFfORWqPEMjOBFsLRRfEDWhZXYeEW6SHFBxPKHg ICAgICAgICAgICAgICAgICAgICAgICAgICAgICAgIC AgICAgICAgICAgICAgICAgICAgICAgICAgICAgICAgICAgICAgICAgICAgICAgICAgICAgICAgICAgIC BoOX7ZOD80sIYgr4P7QHPxWH2oxaz/Fc2BLLnthlYadFHpCX6RRuAoUY4rtc3VEeXtVO9cll7LATvUAv TmP4V5gMNoPZBxGYSQUlCuO64cUFhcMq38SZkeNJIq EdTvSLd7Qs0DAaTiR4hfIWBuMzG1MPKuQlH9BAGtQmBsLZfoHX4Ze5SwiQAjGGc+Yb3LXI7gq8DbICiy GbThHQ6qqf7KFBiBVxTfC4T8zEFbV1W5VHtgRt3BFVQdMOScBsViVSLEUQpwBJ4SKG9ljpM8YR9YuJGr BTJzILYsiVZxUSr7P34fhFLzNHycYQ5AYCH+Gil+Pg 6JSOFrWYKpTXEuTvXiQFCSHkQmD61qzXJqQEMlBLUrFTYrNu6CBSHeW3DrwmRpfQufriEjFAAnFNZBGM 5IYKszxyKooAXqqNpnHU92sMvrRM6KRc8EBzBhHP7poh2BhEHsFo3AXGGlGH6BVPKnYYAaREGtINS7XI ZjAeXxROjuAPQdDOTdFMQ0FPOcJHYdHZ4ENvXxFKEh AMuzDLMvRQBpQHGyrn5BKACmTITiRRp1SaCiMGVqCYYpIPvtJDXcBEUxFKisCGUsFYRtQG8DYmRcBGTj YVT3FRKnCOQuKUVxgk2JBRByVKXhIvy8ZWVsHCNyTSQjYRcrMQVoBKI3VQo0ASWcGZOwTS2DGsTeYPQj HLRcWcguIQWsCYRzcp5TLOHkPLEjMeLvZxUsYBGfCD OmXLmcQJQzQBN9UAEcRCDoVFSzYH6WUtRwODRtZJF8JNXaXEQvKHVfgs1KERFcBOPuGnM0AoZlCNIeVA OyQCreINQcCGJ8Yyz8INNuSNOpOE1BSbAeHHTgHFl5EgUvRMStLLNjzc6PVHYyUAKyCftfTHWnABYnHQ WgQDozSVAqPREwYMB2YTDlWNNpUV4CKfNbGOEgVHMt GBxmIGNrWRYskn3EJJLgKIGiWxS1ELDbEFWlIUVpVNdeEMMxXJNkUxH4CWVmTMLjQB9VIgWaRXBaZFS8 IyjxAAHlPDSgkq9UQNFiIQDoQUm2RaLwNFUrEEHrQXrzKUGnOKM9PFZ4KTRlJPFzXQ0DFrBzBORuWDM1 EruxYJEoFTLpce3UYKBvUYCdIsO0IsRhGSLzJLRwDI djJLHgJIQ3MzX5NXWyFXAhWF4ZEwBoJXZwFFA6LMGzFXBcGKEimz9AZLCfZDOxFle7WDJrZCNfVMWkSL icJWNsDVC5CoZ8PKYtGKFnMD6QTsTgYAVtGIt0VeboWICcHXWpow9QBJUwSDHkRwa0NnEkVXFzNKXhBJ dtDILmQHT0ZLb9FMCwOFOuAS3BEiKzIQLpJWz7BLVj CGUeKGXbzr8AVNOoPOTfKTJ3IrTcTXJdNQIlDDm9sxCwxKMzSQm8LI2ET2HkkcEvSgQYLk3Cc490GIWh DIVvRc2LV8ayAq4sUSBdPOHONq6BUMz3RZtyKcqbEfPzWtu2YmEhRAh8EfZ9YkTcSaO3TtQgV3T+IDxk P7T9UECeNiB8WVxvZ4PeQef1JVGrRYNlWyCjOYT6TB 9tFEDLNp5+FXwxvSWosRtvXHHBYeYoSyK7HCdsUJJPRn5U ID Date Data Source [id number] 03/05/2021 06:13:11 PM EDT [facility] Name Value Range Interpretation Code Description Data Candice rce(s) Supporting Document(s) &PDF [facility] EICPFl7wOwPTJdWz06/ZTVfxNBDgb9UsRRxjSDf6PLegBQHxH0VjbKugMSuEDLODD5SVFNETZ35JErUU 0b3 PfLRVnHiQJgBZ8QP4yUOIdbnJakbB3rK2pYV9NBOO+Md1JVS6cf9CpAUu0JTFbd4XkZWujAXx0D9XpnF MddsHgWxyzeWAWVHJkGDCpH4rytgp4sEPyDQNaQr1XBpMll0MbLFNaBAqDot1zD0/cuBV+L9D/QKDoIg rSUg8pahJPiLvGIynXjpUg6RZOw0wKyweNi9dTnnx9 4fNgbdNBbLY5vikL1ATGZKcA+StpUp0boocy/nDc7PbEhQYJ/13/BrtQqsgg192nEWjC684azozpzMyt aqqqF+w/Bfv+rAzPLfpSlHWEllj96AWXrNT2vhPfEJ2l1tzx/CfWG184oOvQcEWjAqJOqftK2ms6PRqa jwvJlz3b4VJ5ASbFNuRpD62DFKUDyCKHfchm+HRVNU fivaywUN7Fpj7hcpvEkIlM9uIe6ggRc/4DjgE+gMQasD4Seoz7QGbtJfVN8FbyaZ3qAPfUleeVj364UP iimBA58FBFeZ2xD3cIzwY5yab6OCiNSziwmYJ8gSgFvHS20dE2masWzfSHmdFRnvHkO9098hZl2lkNg+ NGix4IH89saezwZfwNn9utg6HuGWIRDo9xp/s/UQGU dQYIhTW2Q7ClSZN7BT9Qs1wnO45FWlgp8CbLO84huE76hW1TJ1GKJBLJEMf1v1HjZ5iLjmvzQ6cSt/DV MT6qzqBDDYqKpwlySGbasQwSMf9IM9DwUPh24oJ0cPmhYn0ZYQ3fs5S5keoAa3xxikqq14S2rHnMjVB3 mTRq7yRySYKRG9o2xYfnumXihFE7SMHPKV2lUpi+FO BFFuwJqWSB/KhXfIZeyCcWycXxrWhrTgWeSIObRRokL4i6UKM8kFVqstPiWSTgBzXDky4lf/aH1mQO72 Cjl3Y71RCFguqu/P4RpUo//zeGo43mBdkadMPAm+mQfm1VqKNiGddV2YpBQiHRpWut6j595lHpp68mg9 Vbmwo2g3pspLQUJTKfHIAXlQNl9b4OJFRPebBRMAJ7 [file] GsOABPTf/5+HxBV++f//telephone operators supervisor+002eXNRuR3O7IOo+Jy D3XySC/dDIZ7RCk+n//30eDNlVRZpaZB1ghN5Q0X60absxZNKi9yH7Ha+BAr0+J/+lQwX8f/8Hg3/ZUI P2z7LVvSjFJ8KER1eOf/unV71kiM5zCKZLWF9MRQ6BFP4eo0TxLLUxKSkxbwAfQzaWZnVhVMYbf2IvQK x9EM7MCLGtAOngIU8VO6ZsOXB7W4Z7SaQ2lUJlCQ3r C5AqThHiKT5zqBl5M8PtsJPGOKLVj25tx86sqoFsWP0Oq9uwezRqTUKxG5KzwyppUOTAKo7YiSA3rFSu Si4OEQriuDSdSMJfSZDsY4CuVRCfGR3UiXf2VGRlXf4ElDM2KJXwM39zBT5NKvZkC7LSXNAsZTO6TKXn UiANCj4+ZGqmwTUcTQ8CTinU+///PwMYBGRUQBADbv AfDECKEyqIV4+uAPcrzF6uJe2DHbWvif+hoYFE/xaQqJ64+ELWghQFHqjRgTV+DExppfyiU8pUKgghd5 aoO9Pf6xPG8ZSmMsstDeADnhWf+LJbHMLYF8t3VAddltFxeGReZB5BEtKpIV6bwl1AGxNuRWAbEerMOy vsHYixqmPwYafEEeExVINfJxrUJfx0OVdkFF9Bvi7f I4E2SEtyCGIWH0RkdIEqHP3fX6SHA7ahQJbaRd8UIcUqY7ZycdZkXUpdW9LxZDXdDLGrQn6TAJZgAD2E RTEmWuHcKBGGSiOfODVvWqSpZEtsXJMUTZxuPOWoQ2BgPKHsYXFpSa9LKGSrBM6KDVYlNWXjCHA+Pg0K KQCqPS8fzeApdZK0YWYmcH4uSDOwCAXtOWFHDyIdAP BxtW3jIRSjAjPvDJZVRhBwZGOfhJ8eVeSgYhNbFAERSlFmXJRtvD6nOrXdYOTiSMBSGxZtILOckE8mVT YjBIDfLUIMMlEeJEGyrK0iNIXxWJLxWQB+Rb8OXJJeIZj4T2I0SHPeKEu7M2QRU8MPJYBeJWksDHnnKW SjGDd3K7K1SIUlZ1GIF1Rqgpatww5+ZW3GD08VUVEg MSr4U0R8qAYzU3M5vOkVlHT4FM8GPH3QmHt3jEDvmT7+UI5WH7MIRdHyUGv5D3V2cUAdT9Y8sIqLiHT5 UF3XMO1ZeEVwRBQnfdKaMx3zO0ARLQgHTdTFJOZ7BZ9EoTVsSY3MaHZDG6IsaQPbNz6rTArtqXIgtJ3x Pk8dPJmpYA7ZXoPVVUyZXCD1UH8GeEZvRP3NlYZON3 GdfUPuAy5eZLxljVXqjh6+UD8HBKCaGi5NCg8+VCburnMfPatOYrViJPIhw6JnSUg1RS4EZX7maJriOE M4Xf2LdPY2cFKgM0yWJT5DsEQdF30uyNOuPLMtTn9DSgC0uaEqqU8VTV45xSNgc7D9YOApH6gsUQblg0 2eKQwxHYqLGN3rKQUUBCciWTvtPEN5JfQzzbngDDLg Oy8UIhNlNWl1fZ4ovYS7BDD4OollyYZeLEyyEiRnEgVjPxM6uRzxced4USazHJ7zKUmykuzwCHTbYob+ ROhkBUMrMUEbWexUSCNcwD8ahlH7fqNeLMbbmOJkXp9ty0t6UlwhZc7vAd5ySKk2YnLfEqHfSDYoNj4t eV88VPrdtvUgDy4ZTwKgPOO7V4GnHmlOQYS+DQogID xsqNn5mXXcKWSzDe0ALXMfZBXkNZHmLXCqRWEbRICuZDVlDXOpLVCnCZRxUBNcRDTiAWPlZVDmWLUdVQ ArZPLmGRTvOZWoXUJuEMOaWRDvXXSmOANlFYNgIRQdHQFuFJHgLDEfRYWoMFBzGWNwOWQnHO4NWRQrBG AgICAgICAgICAgICAgICAgICAgICAgICAgICAgICAg ICAgICAgICAgICAgICAgICAgICAgICAgICAgICAgICAgICAgICAgICAgICAgICAgICAgICAgICAgICAg NYGbTN9XOANnANKkXTJqGDLzAINnLMVlLEDfEOIcYIBsJDFsFUTmJXMhMQJwHUOgIFJaGJYdDKXfDPNg ICAgICAgICAgICAgICAgICAgICAgICAgICAgICAgIC AxBVWgMCXgFFHrVEJpLX5MMAOaJFFmVBCwTGSaBSKmSICnNXKiQQShRXTbALCqIFJhAEBrUKGwWGJbJQ XiLCYmZGSwMQTpTGJoYUWzMLNeCVClMFJjDDCdTHMtUAVrMOMiASQgZOAtGUQbIQKsHFEaSUSwFD3TYK AgICAgICAgICAgICAgICAgICAgICAgICAgICAgICAg ICAgICAgICAgICAgICAgICAgICAgICAgICAgICAgICAgICAgICAgICAgICAgICAgICAgICAgICAgICAg JSSpHOZhSJ2HSFCuJNHyJQOmCEDeDACqASQfETCwQWLsSZIuNLLvLDKiSEQyXJImFKNbETTmXAYzZQVf ICAgICAgICAgICAgICAgICAgICAgICAgICAgICAgIC VdBBFsTEOzEYXtIEVzYIOePM2LJDOqAQMzWRJdZRCwPVNuJDZzRUZdNAKuQRIyOSMxBHPgZLJcQCDuUR AgICAgICAgICAgICAgICAgICAgICAgICAgICAgICAgICAgICAgICAgICAgICAgICAgICAgICAgICAgIA 0KICAgICAgICAgICAgICAgICAgICAgICAgICAgICAg ICAgICAgICAgICAgICAgICAgICAgICAgICAgICAgICAgICAgICAgICAgICAgICAgICAgICAgICAgICAg FRBhDDWmWVOeJW4MRZZbSVIeCYJgJRIzELZpRHVgZYIbGDHmYQAlZFJiZJVkOFBnSWEpKCDvIOEkGCCp ICAgICAgICAgICAgICAgICAgICAgICAgICAgICAgIC LvMVAtAQBgNLZsGCTqWBXvPBGyBP4YDDNhWKZyJBJiKUHzOPVsEHKvWKNwNUDfOJXzNJEkXJYdSMEiBY AgICAgICAgICAgICAgICAgICAgICAgICAgICAgICAgICAgICAgICAgICAgICAgICAgICAgICAgICAgIC LnOZ7DPT74cABwr3Y9PZJpXJ5memq/Zc2LRNroaaGt bNGcGU4AAjYfZU0faw3YKqJdVZ8nzy2YMHaDUqNqQ3M0eKZqMKAuGQEJWaRtN35vKCvkIy45GCynMZQl WoAsBHy8Ao3BWuNuX2lwJIFvRtN5UDMgNnG9QNYgLcZwRAdbIE5Ek7SzkGDiGKa+Gx0GAU7hi0DwOSfy GbHsVY3ieo2YGWgOSlGuS4E6gPQiX1Z2LSbuUy6AFE TnQAGxCiWrNMTEAJtkBS5ILL6bzbJ4RL5EpEJjOSMeIMShkPQrISw6C52anLZiXXypTF7IWOG+Gil+Pg 1NQEPhUHNwXJPhWaHeVNHEKdWbO28beJBsFVVpHZHhSUFfQu9YLPKfH5LlioCpkFsdsqGeFAXfNCDIUA 7ANPvyeuGdtKGlcLbaRN69nIysRR6GGo7GRpDsEB7w qj3VtMWuUa6VPADgWT4ITYUmLQYvSXIzPQO3BNUbGnLbGRfnNKJpNZJnPIY1YKVqDGMgZR0PHxEeLYDi ROm9MTHsCOYhZUYwsd0QOPUiOVPcARRlKkLoOHXjBUXjNQlyIINtFDMmUGp0IYIrKXKdTO5PNdTqQYFv SNB6OCJeVSOsDXNvmb7CEYRoABClLcGwYXUwANXrWQ UxRMhdVFWnJDP9HSA3MLSfBPJpXT2JJnFeZXHvXOV0GbWkFBNvOYQtbu2QZMJfGUYuQDS6HGYkCTFnTL WcNRuvWJUsSQD1SCp5IBQiBROnRI7XJeWiPGEgYDXxWpytHACzJQZjzy2ZHMUsOJCfCkCkTzQbPEWtEC ZzPTrbBTZaXFF8ClD9LYKlJKUcND9FGuPoOLLzFHo2 XIrfZTNzQDWjfo4MKHNmBFBdJgT9DgGfQDWeQAJhHKmvMQGgKPQjYWcpKYVxGCIkFI8ZVnNvTDSvKZC2 SUUnMKDcDHJuxl5IBTVnWZIfIsP6GbRsDVMdIDUlLCnwEOJhMIMrKNf9GWGoBINwQL9WMlWfSCYiTBPd RpVoEEHzLHOxch1QFBFbFKCaNMMzZgYqQXViQKNnOG bkQAEzRMS9RUr7RALzPIPfLR4MYnWxRQRjEPJ2DjGzJVDfZJDdhd6UVKOnTRAdLSYaOtZhTJLbIGSpSQ ohAJQmBLP0XrrkCXHcSETaBS4LPhMdXZKkSFFmYFUqFVWiPAHrqi7OSVAsBHPlMzGiMzHoRTUmJFLjFG vlXUUtPQF9LqXyIROeWDHoTS8TAdEtZTVvJSC9XaKr NAWlNOStrd4CRJUuECBpYlQkPDOyEYXwYKQvOKcaLIEiDOQ2LWFrVNGmRHRxQQ2PZsNgYMDkYEinHybs PVXgQORqkp9QEDNzJTJtZRJtEBZjEXPlYHWdACm2dgPqhZTeYVq7IU1MX7RoepJvOuMPCt4Qx090AOWg OVJeOp3UH3nfOu0iOQBiBPDKGj7ZGOe6SZExLUGsZC ewCpotSWVaDLUaHOGcKtQ6ERA9PJVbNiG+BHm8TcY7THYnZNU5IEBhQBU9A6CbWiS2BLJ3IDz0PABdNh 2vJEWUWq6+KCadrHWkrRczUOFYMoE9Zyn7VAulBMAPCj3Z ID Date Data Source [id number] 02/15/2021 07:01:00 AM EDT [facility] FASTING:YESFASTING: YESReceived: 021 at 07:36:00 QPT: [facility], [address], [address] [place] [address], [phone], Efren Collins MD Received: 02/14/2021 at 07:36:00 QPT : [facility], [address], [address] [place] [address], [phone], Efren Collins MD Received: 02/14/2021 at 07:36:00 QPT : [facility], [address], [address] [place] [address], [phone], Efren Collins MD Received: 02/14/2021 at 07:36:00 QPT : [facility], [address], [address] [place] [address], [phone], Efren Collins MD Received: 02/14/2021 at 07:36:00 QPT : [facility], [address], [address] [place] [address], [phone], Efren Collins MD Received: 02/14/2021 at 07:36:00 QPT : [facility], [address], [address] [place] [address], [phone] MD Received: 02/14/2021 at 07:36:00 QPT : [facility], [address], [address] [place] [address], [phone] MD Received: 02/14/2021 at 07:36:00 QPT : [facility], [address], [address] [place] [address], [phone] MD Received: 02/14/2021 at 07:36:00 QPT : [facility], [address], [address] [place] [address], [phone] Smith MD Name Value Range Interpretation Code Description Data Candice rce(s) Supporting Document(s) ID Date Data Source [id number] 02/15/2021 05:17:00 AM EDT [facility] FASTING:YESFASTING: YESReceived: 021 at 07:36:00 QPT: [facility], [address], [address] [place] [address], [phone], Efren Collins MD Received: 02/14/2021 at 07:36:00 QPT : [facility], [address], [address] [place] [address], [phone] MD Received: 02/14/2021 at 07:36:00 QPT : [facility], [address], [address] [place] [address], [phone], Efren Collins MD Received: 02/14/2021 at 07:36:00 QPT : [facility], [address], [address] [place] [address], [phone] MD Received: 02/14/2021 at 07:36:00 QPT : [facility], [address], [address] [place] [address], [phone] MD Received: 02/14/2021 at 07:36:00 QPT : [facility], [address], [address] [place] [address], [phone] MD Received: 02/14/2021 at 07:36:00 QPT : [facility], [address], [address] [place] [address], [phone] MD Received: 02/14/2021 at 07:36:00 QPT : [facility], [address], [address] [place] [address], [phone] MD Received: 02/14/2021 at 07:36:00 QPT : [facility], [address], [address] [place] [address], [phone], Efren Collins MD Name Value Range Interpretation Code Description Data Candice rce(s) Supporting Document(s) Cholesterol [Mass/volume] in Serum or Plasma 170 mg/dL <20 0 Normal (applies to non-numeric results) [facility] ID Date Data Source [id number] 02/15/2021 05:17:00 AM EDT [facility] FASTING:YESFASTING: YESReceived: 021 at 07:36:00 QPT: [facility], [address], [address] [place] [address], [phone], Efren Collins MD Received: 02/14/2021 at 07:36:00 QPT : [facility], [address], [address] [place] [address], [phone] MD Received: 02/14/2021 at 07:36:00 QPT : [facility], [address], [address] [place] [address], [phone] MD Received: 02/14/2021 at 07:36:00 QPT : [facility], [address], [address] [place] [address], [phone] MD Received: 02/14/2021 at 07:36:00 QPT : [facility], [address], [address] [place] [address], [phone] MD Received: 02/14/2021 at 07:36:00 QPT : [facility], [address], [address] [place] [address], [phone] MD Received: 02/14/2021 at 07:36:00 QPT : [facility], [address], [address] [place] [address], [phone] MD Received: 02/14/2021 at 07:36:00 QPT : [facility], [address], [address] [place] [address], [phone] MD Received: 02/14/2021 at 07:36:00 QPT : [facility], [address], [address] [place] [address], [phone], Efren Collins MD Name Value Range Interpretation Code Description Data Candice rce(s) Supporting Document(s) Cholesterol in HDL [Mass/volume] in Serum or Plasma 36 mg/dL > OR = 40 Below low normal [facility] ID Date Data Source [id number] 02/15/2021 07:01:00 AM EDT [facility] FASTING:YESFASTING: YESReceived: 021 at 07:36:00 QPT: [facility], [address], [address] [place] [address], [phone] MD Received: 02/14/2021 at 07:36:00 QPT : [facility], [address], [address] [place] [address], [phone], Efren Collins MD Received: 02/14/2021 at 07:36:00 QPT : [facility], [address], [address] [place] [address], [phone] MD Received: 02/14/2021 at 07:36:00 QPT : [facility], [address], [address] [place] [address], [phone] MD Received: 02/14/2021 at 07:36:00 QPT : [facility], [address], [address] [place] [address], [phone] MD Received: 02/14/2021 at 07:36:00 QPT : [facility], [address], [address] [place] [address], [phone] MD Received: 02/14/2021 at 07:36:00 QPT : [facility], [address], [address] [place] [address], [phone] MD Received: 02/14/2021 at 07:36:00 QPT : [facility], [address], [address] [place] [address], [phone] MD Received: 02/14/2021 at 07:36:00 QPT : [facility], [address], [address] [place] [address], [phone] MD Name Value Range Interpretation Code Description Data Candice rce(s) Supporting Document(s) Cholesterol [Mass/volume] in Serum or Plasma 170 mg/dL <20 0 Normal (applies to non-numeric results) [facility] ID Date Data Source [id number] 02/15/2021 05:17:00 AM EDT [facility] FASTING:YESFASTING: YESReceived: 021 at 07:36:00 QPT: [facility], [address], [address] [place] [address], [phone] MD Received: 02/14/2021 at 07:36:00 QPT : [facility], [address], [address] [place] [address], [phone] MD Received: 02/14/2021 at 07:36:00 QPT : [facility], [address], [address] [place] [address], [phone] MD Received: 02/14/2021 at 07:36:00 QPT : [facility], [address], [address] [place] [address], [phone] MD Received: 02/14/2021 at 07:36:00 QPT : [facility], [address], [address] [place] [address], [phone] MD Received: 02/14/2021 at 07:36:00 QPT : [facility], [address], [address] [place] [address], [phone] MD Received: 02/14/2021 at 07:36:00 QPT : [facility], [address], [address] [place], [address]Efren MD Received: 02/14/2021 at 07:36:00 QPT : [facility], [address], [address] [place], [address]Efren MD Received: 02/14/2021 at 07:36:00 QPT : [facility], [address], [address] [place], [address], Efren Collins MD Name Value Range Interpretation Code Description Data Candice rce(s) Supporting Document(s) Triglyceride [Mass/volume] in Serum or Plasma 204 mg/dL <150 Above high normal [facility] If a non-fasting specimen was collected, considerrepeat triglyceride testing on a fasting specimenif clinically indicated.Harrison et al. J. of Clin. Lipidol. 2015;9:129-169. ID Date Data Source [id number] 02/15/2021 05:17:00 AM EDT [facility] FASTING:YESFASTING: YESReceived: 021 at 07:36:00 QPT: [facility], [address], [address] [place], [address]Efren MD Received: 02/14/2021 at 07:36:00 QPT : [facility], [address], [address] [place], [address]Efren MD Received: 02/14/2021 at 07:36:00 QPT : [facility], [address], [address] [place] [address], [phone] MD Received: 02/14/2021 at 07:36:00 QPT : [facility], [address], [address] [place] [address], [phone] MD Received: 02/14/2021 at 07:36:00 QPT : [facility], [address], [address] [place], [address]Efren MD Received: 02/14/2021 at 07:36:00 QPT : [facility], [address], [address] [place], [address]Efren MD Received: 02/14/2021 at 07:36:00 QPT : [facility], [address], [address] [place], [address]Efren MD Received: 02/14/2021 at 07:36:00 QPT : [facility], [address], [address] [place], [phone] MD Received: 02/14/2021 at 07:36:00 QPT : [facility], [address], [address] [place], [address], Efren Collins MD Name Value Range Interpretation Code Description Data Candice rce(s) Supporting Document(s) Cholesterol in LDL [Mass/volume] in Serum or Plasma by calculation 102 mg/dL (calc) Above high normal [facility] Reference range: <100Desirable range <10 0 mg/dL for primary prevention;<70 mg/dL for patients with CHD or diabetic patientswith > or = 2 CHD risk factors.LDL-C is now calculated using the Chasecalculation, which is a validated novel method providingbetter accuracy than the Friedewald equation in theestimation of LDL-C.Joseph MARTINEZ et al. ADAMS. 2013;310(19): 6574-1179(http://education.[employer].com/faq/CBH362) ID Date Data Source [id number] 02/15/2021 05:17:00 AM EDT [facility] FASTING:YESFASTING: YESReceived: 021 at 07:36:00 QPT: [facility], [address], [address] [place], [address]Efren MD Received: 02/14/2021 at 07:36:00 QPT : [facility], [address], [address] [place], [address], Efren Collins MD Received: 02/14/2021 at 07:36:00 QPT : [facility], [address], [address] [place], [address], Efren Collins MD Received: 02/14/2021 at 07:36:00 QPT : [facility], [address], [address] [place], [address], Efren Collins MD Received: 02/14/2021 at 07:36:00 QPT : [facility], [address], [address] [place] [address], [phone], Efren Collins MD Received: 02/14/2021 at 07:36:00 QPT : [facility], [address], [address] [place] [address], [phone], Efren Collins MD Received: 02/14/2021 at 07:36:00 QPT : [facility], [address], [address] [place] [address], [phone], Efren Collins MD Received: 02/14/2021 at 07:36:00 QPT : [facility], [address], [address] [place] [address], [phone], Efren Collins MD Received: 02/14/2021 at 07:36:00 QPT : [facility], [address], [address] [place] [address], [phone], Efren Collins MD Name Value Range Interpretation Code Description Data Candice rce(s) Supporting Document(s) Cholesterol.total/Cholesterol in HDL [Mass Ratio] in Serum o r Plasma 4.7 (calc) <5.0 Normal (applies to non-numeric results) [facility] ID Date Data Source [id number] 02/15/2021 05:17:00 AM EDT [facility] FASTING:YESFASTING: YESReceived: 021 at 07:36:00 QPT: [facility], [address], [address] [place], [address]Efren MD Received: 02/14/2021 at 07:36:00 QPT : [facility], [address], [address] [place] [address], [phone] MD Received: 02/14/2021 at 07:36:00 QPT : [facility], [address], [address] [place] [address], [phone], Efren Collins MD Received: 02/14/2021 at 07:36:00 QPT : [facility], [address], [address] [place] [address], [phone], Efren Collins MD Received: 02/14/2021 at 07:36:00 QPT : [facility], [address], [address] [place] [address], [phone] MD Received: 02/14/2021 at 07:36:00 QPT : [facility], [address], [address] [place] [address], [phone] MD Received: 02/14/2021 at 07:36:00 QPT : [facility], [address], [address] [place] [address], [phone] MD Received: 02/14/2021 at 07:36:00 QPT : [facility], [address], [address] [place] [address], [phone] MD Received: 02/14/2021 at 07:36:00 QPT : [facility], [address], [address] [place] [address], [phone] MD Name Value Range Interpretation Code Description Data Candice rce(s) Supporting Document(s) Cholesterol non HDL [Mass/volume] in Serum or Plasma 134 mg/dL ( calc) <130 Above high normal [facility] For patients with diabetes plus 1 major ASCVD riskfactor, treating to a non-HDL-C goal of <100 mg/dL(LDL-C of <70 mg/dL) is considered a therapeuticoption. ID Date Data Source [id number] 02/15/2021 07:01:00 AM EDT [facility] FASTING:YESFASTING: YESReceived: 021 at 07:36:00 QPT: [facility], [address], [address] [place] [address], [phone], Efren Collins MD Received: 02/14/2021 at 07:36:00 QPT : [facility], [address], [address] [place] [address], [phone] MD Received: 02/14/2021 at 07:36:00 QPT : [facility], [address], [address] [place] [address], [phone] MD Received: 02/14/2021 at 07:36:00 QPT : [facility], [address], [address] [place] [address], [phone] MD Received: 02/14/2021 at 07:36:00 QPT : [facility], [address], [address] [place] [address], [phone] MD Received: 02/14/2021 at 07:36:00 QPT : [facility], [address], [address] [place] [address], [phone] MD Received: 02/14/2021 at 07:36:00 QPT : [facility], [address], [address] [place] [address], [phone] MD Received: 02/14/2021 at 07:36:00 QPT : [facility], [address], [address] [place] [address], [phone], Efren Collins MD Received: 02/14/2021 at 07:36:00 QPT : [facility], [address], [address] [place], [phone], Efren Collins MD Name Value Range Interpretation Code Description Data Candice rce(s) Supporting Document(s) Glucose [Mass/volume] in Serum or Plasma 104 mg/dL 65-99 Above high normal [facility] Fasting reference intervalFor someone without known diabetes, a glucose valuebetween 100 and 125 mg/dL is consistent withprediabetes and should be confirmed with afollow-up test. Urea nitrogen [Mass/volume] in Serum or Plasma 18 mg/dL 7 -25 Normal (applies to non-numeric results) [facility] Creatinine [Mass/volume] in Serum or Plasma 0.88 mg/dL 0.70 -1.25 Normal (applies to non-numeric results) [facility] For patients >49 years of age, the refer ence limitfor Creatinine is approximately 13% higher for peopleidentified as -Citizen Of [place]. eGFR NON-AFR. [place] 91 mL/min/1.73m2 > OR = 60 Normal ( applies to non-numeric results) [facility] eGFR 106 mL/min/1.73m2 > OR = 60 Normal ( applies to non-numeric results) [facility] Urea nitrogen/Creatinine [Mass Ratio] in Serum or Plasma NOT APPLICABLE (calc) 6-22 [facility] Sodium [Moles/volume] in Serum or Plasma 140 mmol/L 135-146 Normal (applies to non-numeric results) [facility] Potassium [Moles/volume] in Serum or Plasma 4.1 mmol/L 3.5- 5.3 Normal (applies to non-numeric results) [facility] Chloride [Moles/volume] in Serum or Plasma 102 mmol/L 98-11 0 Normal (applies to non-numeric results) [facility] Carbon dioxide, total [Moles/volume] in Serum or Plasma 30 mmol/ L 20-32 Normal (applies to non-numeric results) [facility] Calcium [Mass/volume] in Serum or Plasma 9.4 mg/dL 8.6-10. 3 Normal (applies to non-numeric results) [facility] ID Date Data Source [id number] 02/15/2021 07:01:00 AM EDT [facility] FASTING:YESFASTING: YESReceived: 021 at 07:36:00 QPT: [facility], [address], [address] [place], [phone] MD Received: 02/14/2021 at 07:36:00 QPT : [facility], [address], [address] [place] [address], [phone] MD Received: 02/14/2021 at 07:36:00 QPT : [facility], [address], [address] [place] [address], [phone], Efren Collins MD Received: 02/14/2021 at 07:36:00 QPT : [facility], [address], [address] [place] [address], [phone], Efren Collins MD Received: 02/14/2021 at 07:36:00 QPT : [facility], [address], [address] [place] [address], [phone] MD Received: 02/14/2021 at 07:36:00 QPT : [facility], [address], [address] [place] [address], [phone] MD Received: 02/14/2021 at 07:36:00 QPT : [facility], [address], [address] [place] [address], [phone] MD Received: 02/14/2021 at 07:36:00 QPT : [facility], [address], [address] [place] [address], [phone] MD Received: 02/14/2021 at 07:36:00 QPT : [facility], [address], [address] [place] [address], [phone] MD Name Value Range Interpretation Code Description Data Candice rce(s) Supporting Document(s) Prostate specific Ag [Mass/volume] in Serum or Plasma 3.7 ng/mL < OR = 4.0 Normal (applies to non-numeric results) [facility] The total PSA value from this assay syst em isstandardized against the WHO standard. The testresult will be approximately 20% lower when comparedto the equimolar-standardized total PSA (BeckmanCoulter). Comparison of serial PSA results should beinterpreted with this fact in mind.This test was performed using the Siemenschemiluminescent method. Values obtained fromdifferent assay methods cannot be usedinterchangeably. PSA levels, regardless ofvalue, should not be interpreted as absoluteevidence of the presence or absence of disease. Your request to have a duplicate copy faxed has been acknowledged. Queued to: [id number] ID Date Data Source [id number] 11/09/2020 05:32:51 PM EST [facility] Name Value Range Interpretation Code Description Data Candice rce(s) Supporting Document(s) &PDF [facility] SWEQQl5bZrKKDrMu35/KQCjxQFOdh0PcFPjpPUb8UYvoHPGnL0FwcDglLZbDAESAL1PKXWNZI23FKaZX 0b3 [file] AgICAgICAgICAgICAgICAgICAgICAgICAgICAgICAg NZMxXADsOPWhKXYkFTAeBPJkEPXrFEAkQHUhRYQpBVBeIUQhGQ3EKNSrFKOrGUSsUZOrIKDoEDIqCHQq ICAgICAgICAgICAgICAgICAgICAgICAgICAgICAgICAgICAgICAgICAgICAgICAgICAgICAgICAgICAg QYUeJLWgRMCqRMBzYPGeBOQhBY8BMERhWDDgAEMwGJ AgICAgICAgICAgICAgICAgICAgICAgICAgICAgICAgICAgICAgICAgICAgICAgICAgICAgICAgICAgIC IdBJSdHELsLLKhRXJmOISrXOBaQBYjRBOqVVToMJ3QZBDhCYLeTTDhVSOiFJRnYYQdIWZbSHVrOQOqWC AgICAgICAgICAgICAgICAgICAgICAgICAgICAgICAg YAPdHVIwCXGfHLFbKXLrGFZhIOUlDCNeNNWnOMThNJWeEASvHABnWS5QRNPdCMLnKFWvLOZzEIAmEXNk ICAgICAgICAgICAgICAgICAgICAgICAgICAgICAgICAgICAgICAgICAgICAgICAgICAgICAgICAgICAg WOWoMPCuPZTmATQvCVTqOJVbJZPoIW9HYLBxGZVyRJ AgICAgICAgICAgICAgICAgICAgICAgICAgICAgICAgICAgICAgICAgICAgICAgICAgICAgICAgICAgIC LfQBEsSWPmZQGeACZrYGXbAFPoACAbXZMrQPVuOLIaUM0SOVAbTUSdWRPjWYFvTVPbJUGdQJDnIBArBU AgICAgICAgICAgICAgICAgICAgICAgICAgICAgICAg SDNfBRGvLSNsJDNhRDHtPNZnKQGnUOSeWAQqFSVbHELmLYXxSAHtOPAvRA0TTUEqHQPiWGBwUPWiWCTe ICAgICAgICAgICAgICAgICAgICAgICAgICAgICAgICAgICAgICAgICAgICAgICAgICAgICAgICAgICAg KQAmBOWhNHBsDOMcKXDxVNHhADGvASIrLV3WYFRcSY AgICAgICAgICAgICAgICAgICAgICAgICAgICAgICAgICAgICAgICAgICAgICAgICAgICAgICAgICAgIC XiKKFaLLAcJTHaANXpAUNwPGItIHGdEIAjDIUcGEBpNVBbVE9IEHJvTGJsNPOpEPCsGLCpHJJlMMTyMC AgICAgICAgICAgICAgICAgICAgICAgICAgICAgICAg HZEkCDUuNFZuUNUrNEMrUWKePNYtIGKoHQPuMBHlJTCuMTSmCEKfCWByGRBmDE7MGK36yJFky9Y6VOTr FT4yyzj/Yv7MYWfbwjZywASyWZ7DOiYwCB9bgm5EGrMkIQ7gyx4XOKhEUaYlL9Y3tBDmRARiKXJHMjLy V54kJHkrKh96WKwrRQTvQcMzYNa0Bw1KFnKyA9fdQR JxEoN3MBYuOfG4VMVwXcMfZXdxKO7Yh2HbaUYbKFo+Hd4WLR4yk2OpOZtiRFVeVS0ayb7PIZtUArGkO0 F6dGRtO0D2QVbxCj7AUTEqSZVqTNOrOQZDNErrVM0QRZ7ijpM5UH0IwJYmECVsTRJfeDYdMJj9Y00qdE TvHEyjKQ9FYNZ+Gil+Jv4AKMTgOFWxJBJtSrTtSVOO OqAoW72cqYLmKUOqKNU3GWHwRc7GWWQhH7NgdvIywZqlizXlMLTcPSVFOI0DCUclijGwdQGfvVjhOF47 wZefMM6ITc2XMnViOM4eeg4BkAMlIe2PMVMhFN5MZXNmEUIqSAMfIIA0QVRxJlLhJFbfUZNyZYWdBBZ0 NDSrSXXlJK7KFoBgCYGlLATdKpNkVOJgFTFpfv3RJG PcEPHkMrO8VIPhSCYuBBGgWXbkTZXsHQVsRJx8ZZZbPOHiSU9TQvBkGNZiUCY4KLPqWUOkMPUrmq4KUZ HrJLZhMeM5XYHcXMJaIIUyUTjhWOZmVLEuLeM2AFIcGDQoSX0KLjXgZIQxGIN0XHqnFPLrMZLrzg6BUG FaNQDnEUt6NcQdWYXuJBGtHMqxMQXdHLM2SAKiQISz ZDRrPR1RWoYhXQDwRVNxQZKyBUJcNITbcv6RFOFvUGBvRmGjItSbCOZsSIFwOCsjNCVzRCB9OTC4HIZt GVHcSO8PJePcKNPuGOZ4PKEpPFUqZFEspc5XEICkUMVlClH9GFSaRQJyEWHfPUnwUPBzJJO0YtWbWQMw WUYcZQ7LFqDyICXcZTF8YDgjEXAcHWYqtd0ILEUkSO KaPdP9HnAwROBuLKIzDIv9tpAmkUUmREw1PA2UV1GoloDfCKkYEf5Zl307TFB8EZDnGf9GV5jrHp4nKM YtICCWJy4XJVo2WJLcPKE5I6DsRrX0L3F5Klr7YgHbT4MrBKRwVpUmVsV+CGb0NTK1XGQoUcOiIJmnUF q0WHztZaM6ETK2JaLwFFPtYQ0iQPLGIv8+TIwmjYDpxCczPXIJPcU8VtM1AIirZOQUKi1E ID Date Data Source [id number] 06/21/2020 04:19:57 PM EDT [facility] Name Value Range Interpretation Code Description Data Candice rce(s) Supporting Document(s) &PDF [facility] EEBIYo9wEoQREdWx74/HBCbmLICkj8KdUSlhWSc9JSjhZWHaU7BipMvgJVvARGZVI1IROFARJ37GRzPY vci [file] ICAgICAgICAgICAgICAgICAgICAgICAgICAgICAgICAgICAgICAgICAgICAgICAgICAgICAgICAgICAg ICAgICAgICAgICAgICAgICAgDQogICAgICAgICAgIC AgICAgICAgICAgICAgICAgICAgICAgICAgICAgICAgICAgICAgICAgICAgICAgICAgICAgICAgICAgIC AgICAgICAgICAgICAgICAgICAgICAgICAgICAgDQogICAgICAgICAgICAgICAgICAgICAgICAgICAgIC AgICAgICAgICAgICAgICAgICAgICAgICAgICAgICAg ICAgICAgICAgICAgICAgICAgICAgICAgICAgICAgICAgICAgICAgDQogICAgICAgICAgICAgICAgICAg ICAgICAgICAgICAgICAgICAgICAgICAgICAgICAgICAgICAgICAgICAgICAgICAgICAgICAgICAgICAg ICAgICAgICAgICAgICAgICAgICAgDQogICAgICAgIC AgICAgICAgICAgICAgICAgICAgICAgICAgICAgICAgICAgICAgICAgICAgICAgICAgICAgICAgICAgIC AgICAgICAgICAgICAgICAgICAgICAgICAgICAgICAgDQogICAgICAgICAgICAgICAgICAgICAgICAgIC AgICAgICAgICAgICAgICAgICAgICAgICAgICAgICAg ICAgICAgICAgICAgICAgICAgICAgICAgICAgICAgICAgICAgICAgICAgDQogICAgICAgICAgICAgICAg ICAgICAgICAgICAgICAgICAgICAgICAgICAgICAgICAgICAgICAgICAgICAgICAgICAgICAgICAgICAg ICAgICAgICAgICAgICAgICAgICAgICAgDQogICAgIC AgICAgICAgICAgICAgICAgICAgICAgICAgICAgICAgICAgICAgICAgICAgICAgICAgICAgICAgICAgIC AgICAgICAgICAgICAgICAgICAgICAgICAgICAgICAgICAgDQogICAgICAgICAgICAgICAgICAgICAgIC AgICAgICAgICAgICAgICAgICAgICAgICAgICAgICAg ICAgICAgICAgICAgICAgICAgICAgICAgICAgICAgICAgICAgICAgICAgICAgDQogICAgICAgICAgICAg ICAgICAgICAgICAgICAgICAgICAgICAgICAgICAgICAgICAgICAgICAgICAgICAgICAgICAgICAgICAg KDKbUEAgNONjQRJnBOSaSFBkAYKlUNKfBVEhEMm5K7 esPJFxNTQoLA4zQSs1Bg5+BZzDMyNbZLA8dkQxzX5ZFM1dg2CqOIyjDWGij6FjQAa8XX1TRPDpLJvrAR 6KWElwrd6BZVWiVDHtrBTAk1vlNeLtMYZ6VSRsQnvgOV8ERQTwJ1uphxLoPCIuOWPREJdqZBSBGK0VYe SfN4ThlH76WVRRCs8+GXtdyqWdEhuTQjG2URBuh8Cg BQa7JP8DPNMoOCrhHI5CXJHosR6kBKvcWF5WUuDbIyZuGZQHOfCfI40gbPMuOCk3S9PjVwWmLJFgOdmu ZXMgPDwvTmFtZXMgWyBdDQogID4+ID4+REmsUO3CRJehnnEoQKPfIk0LRJLhHVX3SZBcpCYdNZugUEUY JZltES8MoUCoECY5hC5hUMvlXPNuZZHfN4sWQyXrpO bbSN25bBlprrQvmHUwZHr+Bw3TDZ1eh2PrRNn7zgYqKManSWD7RRrgFTEoRPFeKSXtOAC6ETQ1EXRAEl OrILQgBQLgPNbfOGYaAMYibz6WKQVoNOQuJOOaKxNjIWLwFBXjTUlrSPJbTAM5AVW4AGDmQGDeCH0WMg FyTEOvRLEoXBFyYJXmGMDqiz2ZBTCeIOOgSpN5MlOt GBXfZWKlREhcJPSuYEUsDlYxIKVzVQPhME6ULfLzFAMvHJK3EDDdPNSoZYArwt5VMXBpWJLgEZAsPRSf LRDwKJBxFOepTDAhHBX4OSB9UTZzTPLjJD7RHeJjLTEmLWEwXpUaDJXtHYVpaj4PYNJrFCTvVRX3KCHm QUDxYTAiZRxkPYEqDFA8YeI2KLNlDIBiPK8PLiFzFE UuOQA4EOYsPDFeANUsdg5DRAUjNZRiBfQ1XZRtQDEpGEIhRMqnKGGnQNCfVdu4IPRcLRMnEC6VOxKyON LrWTL3PHHtTKPkTUAken0XVHMcYYPsSXpyUHYiAXLcFBNzIUytMZGgOLK7RnHoXRVjKPJqKY6YKpXuQZ brMVFJVjn0XIiyV7k4WXMyAS4XW1Ngo7BrPNxvEYYI LYktXN9hlrXcEOWsJa3OU3gJNdxiPYxtLWXdHlYtSkT7B1ZvTDHyOnK2NVQyCYOkEENeWP5aPHSoWSKe JHMeFGAdFkytRNZ0GIRjKoOhQxU2CxBbM1XzWuOlOZ6BLj6LSpX7ZWP9vKPuJi1RILa7CQHWTpLdQC4X DQo= Procedure Social History Code Duration Value Status Description Data Source(s ) Alcohol intake 04/29/2021 12:00:00 AM EDT Current non-d jacky of alcohol (finding) completed Current non-drinker of alcohol (finding) [facility] Smoking 03/10/2021 12:00:00 AM EDT - 10/15/2000 12:00:00 AM EST Patient is a former smoker completed Patient is a former smoker [facility] ([facility], ) Smoking 02/10/2021 12:00:00 AM EDT Former Smoker completed Former Smoker eCW1 (On License Of [facility]) Smoking 02/10/2021 12:00:00 AM EDT Former Smoker completed Former Smoker eCW1 (On License [facility]) Smoking 02/10/2021 12:00:00 AM EDT Former Smoker completed Former Smoker eCW1 (On License [facility]) Alcohol intake 12/24/2020 12:00:00 AM EST No completed [facility] Cigarette pack-years 12/24/2020 12:00:00 AM EST UNK completed [facility] Cigarettes smoked current (pack per day) - Reported 12/25/19 12:00:00 AM EST UNK completed [facility] Smoking 12/24/2020 12:00:00 AM EST Former smoker completed Former smoker [facility] Alcohol intake 09/23/2020 12:00:00 AM EST No completed [facility] Cigarette pack-years 09/23/2020 12:00:00 AM EST UNK completed [facility] Cigarettes smoked current (pack per day) - Reported 09/23/20 12:00:00 AM EST UNK completed [facility] Smoking 09/23/2020 12:00:00 AM EST Former smoker completed Former smoker [facility] Smoking 08/11/2020 12:00:00 AM EDT Former Smoker completed Former Smoker eCW1 (On License [facility]) Smoking 08/11/2020 12:00:00 AM EDT Former Smoker completed Former Smoker eCW1 (On License [facility]) Vital Signs ID Date Data Source UNK Name Value Range Interpretation Code Description Data Source(s) Systolic blood pressure 118 mm[Hg] 118 mm[Hg] [facility] Diastolic blood pressure 60 mm[Hg] 60 mm[Hg] [facility] Heart rate 59 /min 59 /min [facility] Body height 177.8 cm 177.8 cm [facility] Body weight 97.523 kg 97.523 kg [facility] Body mass index (BMI) [Ratio] 30.85 kg/m2 30.85 kg/m2 [facility] Oxygen saturation in Arterial blood by Pulse oximetry 98 % 98 % [facility] Systolic blood pressure 120 mm[Hg] 120 mm[Hg] M EDENT ([facility], ) Diastolic blood pressure 70 mm[Hg] 70 mm[Hg] [facility] ([facility], ) Heart rate 64 /min 64 /min [facility] ([facility], ) Oxygen saturation in Arterial blood by Pulse oximetry 96 % 96 % [facility] Body height 70 [in_i] 70 [in_i] [facility] ([facility], ) 5'10" Body weight 232.12 [lb_av] 232.12 [lb_av] MEDEN T ([facility], ) Body mass index (BMI) [Ratio] 33.3 kg/m2 33.3 k g/m2 [facility] ([facility]) [place] body weight 166 [lb_av] 166 [lb_av] MEDEN T ([facility]) Body weight 105.292 kg 105.292 kg [facility] ([facility]) Body surface area Derived from formula 2.22 m2 2.22 m2 [facility] ([facility]) Body weight 216 [lb_av] 216 [lb_av] eCW1 ([facility]) Body height 70 [in_i] 70 [in_i] eCW1 ([facility]) Body mass index (BMI) [Ratio] 30.99 kg/m2 30.99 kg/m2 W1 (On License [facility]) Heart rate 82 /min 82 /min eCW1 ([facility]) Respiratory rate 18 /min 18 /min eCW1 ([facility]) Body temperature 96.3 [degF] 96.3 [degF] eCW1 ( On License [facility]) Systolic blood pressure 130 mm[Hg] 130 mm[Hg] e CW1 (On License [facility]) Diastolic blood pressure 62 mm[Hg] 62 mm[Hg] eCW1 (On License Of [facility]) Systolic blood pressure 116 mm[Hg] 116 mm[Hg] [facility] Diastolic blood pressure 54 mm[Hg] 54 mm[Hg] [facility] Heart rate 78 /min 78 /min [facility] Body height 177.8 cm 177.8 cm [facility] Body weight 97.07 kg 97.07 kg [facility] Body mass index (BMI) [Ratio] 30.71 kg/m2 30.71 kg/m2 [facility] Oxygen saturation in Arterial blood by Pulse oximetry 98 % 98 % [facility] Systolic blood pressure 104 mm[Hg] 104 mm[Hg] [facility] Diastolic blood pressure 56 mm[Hg] 56 mm[Hg] [facility] Heart rate 71 /min 71 /min [facility] Body height 177.8 cm 177.8 cm [facility] Body weight 97.523 kg 97.523 kg [facility] Body mass index (BMI) [Ratio] 30.85 kg/m2 30.85 kg/m2 [facility] Oxygen saturation in Arterial blood by Pulse oximetry 97 % 97 % [facility] Body weight 214 [lb_av] 214 [lb_av] eCW1 ([facility]) Body height 70 [in_i] 70 [in_i] eCW1 ([facility]) Body mass index (BMI) [Ratio] 30.70 kg/m2 30.70 kg/m2 W1 (On License [facility]) Heart rate 77 /min 77 /min eCW1 ([facility]) Respiratory rate 18 /min 18 /min eCW1 ([facility]) Body temperature 96.2 [degF] 96.2 [degF] eCW1 ( On License [facility]) Systolic blood pressure 96 mm[Hg] 96 mm[Hg] e CW1 (On License [facility]) Diastolic blood pressure 58 mm[Hg] 58 mm[Hg] eCW1 (On License Of [facility]) Patient Treatment Plan of Care Planned Activity Planned Date Details Description Data Source (s) Furosemide 20 MG Oral Tablet 04/29/2021 12:00:00 AM EDT [facility] Furosemide 20 MG Oral Tablet 04/14/2021 12:00:00 AM EDT [facility] carvedilol 25 MG Oral Tablet 04/14/2021 12:00:00 AM EDT [facility] ezetimibe 10 MG Oral Tablet 01/20/2021 12:00:00 AM EDT [facility] Furosemide 20 MG Oral Tablet 12/24/2020 12:00:00 AM EST [facility] ezetimibe 10 MG Oral Tablet 12/24/2020 12:00:00 AM EST [facility] ezetimibe 10 MG Oral Tablet 12/16/2020 12:00:00 AM EST [facility] sacubitril 97 MG / valsartan 103 MG Oral Tablet [Entre sto] 09/23/2020 12:00:00 AM EST [facility] Furosemide 20 MG Oral Tablet 09/23/2020 12:00:00 AM EST [facility] ezetimibe 10 MG Oral Tablet 09/23/2020 12:00:00 AM EST [facility] sacubitril 97 MG / valsartan 103 MG Oral Tablet [Entre sto] 05/11/2020 12:00:00 AM EDT [facility] Furosemide 20 MG Oral Tablet 03/09/2020 12:00:00 AM EDT [facility] [place]-3 Acid Ethyl Esters (GROUP HOME) 1000 MG Oral Capsule [facility]
--- OUTSIDE RECORDS SUMMARY | 2021-08-08 17:03 | CCD ---
Author Author [facility] Organization [facility] Address Unknown Phone Unavailable Care Team Providers Care Assistant Curator Name Role Phone ARIANA, GOLDIE GABE MINISTER-C Unavailable Unavailable ARIANA, GOLDIE GABE MINISTER-C Unavailable Unavailable ARIANA, GOLDIE GABE MINISTER-C Unavailable Unavailable ARIANA, GOLDIE GABE MINISTER-C Unavailable Unavailable ARIANA, GOLDIE GABE MINISTER-C Unavailable Unavailable ARIANA, GOLDIE GABE MINISTER-C Unavailable Unavailable ARIANA, GOLDIE GABE MINISTER-C Unavailable Unavailable ARIANA, GOLDIE GABE MINISTER-C Unavailable Unavailable ARIANA, GOLDIE GABE MINISTER-C Unavailable Unavailable ARIANA, GOLDIE GABE MINISTER-C Unavailable Unavailable ARIANA, GOLDIE GABE MINISTER-C Unavailable Unavailable ARIANA, GOLDIE GABE MINISTER-C Unavailable Unavailable ARIANA, GOLDIE GABE MINISTER-C Unavailable Unavailable ARIANA, GOLDIE GABE MINISTER-C Unavailable Unavailable ARIANA, GOLDIE GABE MINISTER-C Unavailable Unavailable ARIANA, GOLDIE GABE MINISTER-C Unavailable Unavailable ARIANA, GOLDIE GABE MINISTER-C Unavailable Unavailable Fons, M Jyothi MINISTER Unavailable Unavailable Fons, M Jyothi MINISTER Unavailable Unavailable Fons, M Jyothi MINISTER Unavailable Unavailable Fons, M Jyothi MINISTER Unavailable Unavailable Fons, M Jyothi MINISTER Unavailable Unavailable Fons, M Jyothi MINISTER Unavailable Unavailable Fons, M Jyothi MINISTER Unavailable Unavailable Fons, M Jyothi MINISTER Unavailable Unavailable Fons, M Jyothi MINISTER Unavailable Unavailable Fons, M Jyothi MINISTER Unavailable Unavailable Fons, M Jyothi MINISTER Unavailable Unavailable Fons, M Jyothi MINISTER Unavailable Unavailable Fons, M Jyothi MINISTER Unavailable Unavailable Fons, M Jyothi MINISTER Unavailable Unavailable Fons, M Jyothi MINISTER Unavailable Unavailable Fons, M Jyothi MINISTER Unavailable Unavailable Fons, M Jyothi MINISTER Unavailable Unavailable Fons, M Jyothi MINISTER Unavailable Unavailable Fons, M Jyothi MINISTER Unavailable Unavailable Fons, M Jyothi MINISTER Unavailable Unavailable Fons, M Jyothi MINISTER Unavailable Unavailable Fons, M Jyothi MINISTER Unavailable Unavailable Fons, M Jyothi MINISTER Unavailable Unavailable Fons, M Jyothi MINISTER Unavailable Unavailable Fons, M Jyothi MINISTER Unavailable Unavailable Fons, M Jyothi MINISTER Unavailable Unavailable Fons, M Jyothi MINISTER Unavailable Unavailable Fons, M Jyothi MINISTER Unavailable Unavailable Fons, M Jyothi MINISTER Unavailable Unavailable Fons, M Jyothi MINISTER Unavailable Unavailable Fons, M Jyothi MINISTER Unavailable Unavailable Fons, M Jyothi MINISTER Unavailable Unavailable Fons, M Jyothi MINISTER Unavailable Unavailable Fons, M Jyothi MINISTER Unavailable Unavailable Fons, M Jyothi MINISTER Unavailable Unavailable Fons, M Jyothi MINISTER Unavailable Unavailable Fons, M Jyothi MINISTER Unavailable Unavailable Fons, M Jyothi MINISTER Unavailable Unavailable Fons, M Jyothi MINISTER Unavailable Unavailable Fons, M Jyothi MINISTER Unavailable Unavailable Fons, M Jyothi MINISTER Unavailable Unavailable Fons, M Jyothi MINISTER Unavailable Unavailable Fons, M Jyothi MINISTER Unavailable Unavailable Fons, M Jyothi MINISTER Unavailable Unavailable Fons, M Jyothi MINISTER Unavailable Unavailable Fons, M Jyothi MINISTER Unavailable Unavailable Fons, M Jyothi MINISTER Unavailable Unavailable Fons, M Jyothi MINISTER Unavailable Unavailable Fons, M Jyothi MINISTER Unavailable Unavailable Fons, M Jyothi MINISTER Unavailable Unavailable Fons, M Jyothi MINISTER Unavailable Unavailable Fons, M Jyothi MINISTER Unavailable Unavailable Fons, M Jyothi MINISTER Unavailable Unavailable Re-disclosure Warning The records that [...] is protected by Article 27-F of the [place] [employer] law. If you continue you may have access to information: Regarding HIV / AIDS; Provided by facilities licensed or operated by the [place] Office of Mental Health; or Provided by the [place] Office for People With Developmental Disabilities. If such information is present, then the following [place] mandated warning applies: This information has been [...] law may result in a fine or detention sentence or both. A general authorization for [...] PM EDT - 06/16/2021 01:28:17 PM EDT [facility] Outpatient Attender: Jyothi OROZCO-SJMEG 12:00:00 AM EDT - 04/29/2021 08:21:03 AM EDT [facility] [place] [address] [address] 04/22/2021 12:00:00 AM EDT eCW1 ([facility]) Outpatient Attender: GABE Bernal/Juan Luis/[place] 03/10/2021 10:15:00 AM EDT MEDENT ([facility], ) Outpatient MERT.ANA 03/05/2021 06:14:58 PM EDT [facility] Outpatient MERT.ANA.NGA 03/03/2021 12:03:30 PM EDT [facility] [place] [address] [address] 02/15/2021 12:00:00 AM EDT eCW1 ([facility]) [place] [address] [address] 02/10/2021 12:00:00 AM EDT eCW1 ([facility]) Outpatient Attender: Jyothi DOZIER 1 12:00:00 AM EST - 12/24/2020 08:38:06 AM EST [facility] Outpatient SJNENGA 11/04/2020 11:56 :31 AM EST - 11/04/2020 12:14:57 PM EST [facility] Outpatient Attender: Jyothi LAINGA 0 12:00:00 AM EST - 09/23/2020 08:56:09 AM EST [facility] [place] [address] [address] 08/16/2020 12:00:00 AM EST eCW1 ([facility]) [place] [address] [address] 08/11/2020 12:00:00 AM EDT eCW1 ([facility]) [place] [address] [place] [address] 07/26/2020 12:00:00 AM EDT eCW1 ([facility]) Outpatient MINGNGA 06/17/2020 11:20 :01 AM EDT - 06/17/2020 11:36:09 AM EDT [facility] Immunizations Vaccine Date Status Description Data Source(s) COVID-19 VACCINE Moderna 01/11/2021 12:00:00 AM EDT completed [facility] Vaccine Series Complete: YESThis Data wa s Submitted to [facility]. COVID-19 dose #2 given elsewhere Unspecified 01/10/2021 08:2 0:00 AM EDT completed eCW1 ([facility]) COVID-19 dose #2 given elsewhere Unspecified 01/10/2021 08:2 0:00 AM EDT completed eCW1 ([facility]) COVID-19 dose #2 given elsewhere Unspecified 01/10/2021 08:2 0:00 AM EDT completed eCW1 ([facility]) COVID-19 VACCINE Moderna 12/14/2020 12:00:00 AM EST completed [facility] Vaccine Series Complete: NOThis Data was Submitted to [facility] [employer]. COVID-19 dose #1 given elsewhere Unspecified 12/13/2020 08:1 9:00 AM EST completed eCW1 ([facility]) COVID-19 dose #1 given elsewhere Unspecified 12/13/2020 08:1 9:00 AM EST completed eCW1 ([facility]) COVID-19 dose #1 given elsewhere Unspecified 12/13/2020 08:1 9:00 AM EST completed eCW1 ([facility]) Zoster 50mcg/0.5mL Shingrix 08/11/2020 09:06:00 AM EDT completed eCW1 ([facility]) Zoster 50mcg/0.5mL Shingrix 08/11/2020 09:06:00 AM EDT completed eCW1 ([facility]) Zoster 50mcg/0.5mL Shingrix 08/11/2020 09:06:00 AM EDT completed eCW1 ([facility]) Zoster 50mcg/0.5mL (Shingrix) 08/11/2020 09:06:00 AM EDT completed eCW1 ([facility]) Zoster 50mcg/0.5mL (Shingrix) 08/11/2020 09:06:00 AM EDT completed eCW1 ([facility]) IIV3. This is one of two codes replacing CVX 15, which is being retired. 07/20/2020 09:07:00 AM EDT completed eCW1 ([facility]) IIV3. This is one of two codes replacing CVX 15, which is being retired. 07/20/2020 09:07:00 AM EDT completed eCW1 ([facility]) IIV3. This is one of two codes replacing CVX 15, which is being retired. 07/20/2020 09:07:00 AM EDT completed eCW1 ([facility]) IIV3. This is one of two codes replacing CVX 15, which is being retired. 07/20/2020 09:07:00 AM EDT completed eCW1 ([facility]) IIV3. This is one of two codes replacing CVX 15, which is being retired. 07/20/2020 09:07:00 AM EDT completed eCW1 ([facility]) Medications Medication Brand Name Start Date Product Form Dose Route Admi nistrative Instructions Pharmacy Instructions Status Indications Reaction Description Data Source(s) Furosemide 20 MG Oral Tablet furosemide (LASIX) 20 MG tablet furosemide (LASIX) 20 MG tablet 04/29/2021 12:00:00 AM EDT 20 mg Oral activ e Take 1 tablet (20 mg total) by mouth daily [facility] Furosemide 20 MG Oral Tablet furosemide (LASIX) 20 MG tablet furosemide (LASIX) 20 MG tablet 04/14/2021 12:00:00 AM EDT abort ed Take 1 tablet by mouth once daily [facility] carvedilol 25 MG Oral Tablet carvedilol (COREG) 25 MG tablet carvedilol (COREG) 25 MG tablet 04/14/2021 12:00:00 AM EDT activ e Take 1 tablet by mouth twice daily [facility] ezetimibe 10 MG / Simvastatin 10 MG Oral Tablet Ezetimibe-Si mvastatin 03/10/2021 12:00:00 AM EDT ORAL active M EDENT ([facility]) ezetimibe 10 MG Oral Tablet ezetimibe (ZETIA) 10 MG ta blet ezetimibe (ZETIA) 10 MG tablet 01/20/2021 12:00:00 AM EDT active Take 1 tablet by mouth once daily [facility] Covid-19 vaccine, Unspecified 01/11/2021 12:00:00 AM EDT completed MEDENT ([facility], ) Medication administered onsite Furosemide 20 MG Oral Tablet furosemide (LASIX) 20 MG tablet furosemide (LASIX) 20 MG tablet 12/24/2020 12:00:00 AM EST 20 mg Oral activ e Take 1 tablet (20 mg total) by mouth daily [facility] ezetimibe 10 MG Oral Tablet ezetimibe (ZETIA) 10 MG ta blet ezetimibe (ZETIA) 10 MG tablet 12/24/2020 12:00:00 AM EST 10 mg Oral active Take 1 tablet (10 mg total) by mouth daily [facility] ezetimibe 10 MG Oral Tablet ezetimibe (ZETIA) 10 MG ta blet ezetimibe (ZETIA) 10 MG tablet 12/16/2020 12:00:00 AM EST aborted Take 1 tablet by mouth once daily [facility] Covid-19 vaccine, Unspecified 12/14/2020 12:00:00 AM EST completed MEDENT ([facility], ) Medication administered onsite ezetimibe 10 MG Oral Tablet ezetimibe (ZETIA) 10 MG ta blet ezetimibe (ZETIA) 10 MG tablet 09/23/2020 12:00:00 AM EST 10 mg Oral active Take 1 tablet (10 mg total) by mouth daily [facility] Furosemide 20 MG Oral Tablet furosemide (LASIX) 20 MG tablet furosemide (LASIX) 20 MG tablet 09/23/2020 12:00:00 AM EST 20 mg Oral abort ed Take 1 tablet (20 mg total) by mouth daily [facility] sacubitril 97 MG / valsartan 103 MG Oral Tablet [Entresto] ENTRESTO 97-103 MG TABS ENTRESTO 97-103 MG TABS 09/23/2020 12:00:00 AM EST 1 {tbl} Oral active Take 1 tablet by mouth 2 (two) t imes a day [facility] sacubitril 97 MG / valsartan 103 MG Oral Tablet [Entresto] ENTRESTO 97-103 MG TABS ENTRESTO 97-103 MG TABS 05/11/2020 12:00:00 AM EDT 1 {tbl} Oral aborted Take 1 tablet by mouth 2 (two) t imes a day [facility] Furosemide 20 MG Oral Tablet furosemide (LASIX) 20 MG tablet furosemide (LASIX) 20 MG tablet 03/09/2020 12:00:00 AM EDT 20 mg Oral abort ed Take 1 tablet (20 mg total) by mouth daily [facility] [place]-3 Acid Ethyl Esters (SHELTER) 1000 MG Oral Capsule omega-3 acid ethyl esters (LOVAZA) 1 g capsule omega-3 acid ethyl esters (LOVAZA) 1 g capsule 2 g Oral aborted Take 2 g by mouth da memo [facility] Insurance Providers Payer name Policy type / Coverage type Policy ID Covered libertarian ID Covered libertarian's relationship to miles Policy Miles Plan Information BCBS AGUEDA QUEZADA PPO 302/307 [id number] SP [id number] [facility] [id number] P HEALTH CARE [id number] SP [id number] MVP H [id number] Self [id number] MVP [id number] MVP [id number] Chayo [id number] 200 MVP PREMIER EXCHANGE [id number] Chayo [id number] MVP [id number] Chayo [id number] 200 [facility] HE[facility] CARE [id number] SP [id number] P HEALTH CARE [id number] SP [id number] ANSI-Commercial [id number] SELF PAY ONLY [id number] SP [id number] MVP HEALTH CARE O [id number] S [id number] MVP Commercial [id number] Self MVP (pr) Commercial [id number] Self MVP Health Care Health Maintenance Organization (HMO) [id number] Self BCBS [place] PPO 302/307 [id number] SP [id number] OTHER WORKERS COMPENSATION [id number] SP [id number] [employer] HE[employer] CARE [id number] SP [id number] [employer] HE[employer] CARE [id number] SP [id number] MVP Commercial [id number] Self [id number] ANSI-Commercial [id number] ANSI-Commercial [id number] ANSI-Commercial [id number] ANSI-Commercial [id number] ANSI-Commercial [id number] ANSI-Commercial [id number] Problems, Conditions, and Diagnoses Code Display Name Description Problem Type Effective Dates Data Source(s) G47.33 Obstructive sleep apnea (adult) (pediatr ic) Obstructive sleep apnea (adult) (pediatr Diagnosis 04/29/2021 07:48:38 AM EDT [facility] I44.7 Left bundle-branch block, unspecified Le ft bundle-branch block, unspecified Diagnosis 04/29/2021 07:48:38 AM EDT [facility] D68.51 Activated protein C resistance Activated protein C res istance Diagnosis 04/29/2021 07:48:38 AM EDT [facility] E78.00 Pure hypercholesterolemia, unspecified P ure hypercholesterolemia, unspecified Diagnosis 04/29/2021 07:48:38 AM EDT [facility] R06.00 Dyspnea, unspecified Dyspnea, unspecified Diagnosis 04/29/2021 07:48:38 AM EDT [facility] I50.22 Chronic systolic (congestive) heart fail ure Chronic systolic (congestive) heart fail Diagnosis 04/29/2021 07:48:38 AM EDT [facility] I42.8 Other cardiomyopathies Other cardiomyopathies Diagnosi s 04/29/2021 07:48:38 AM EDT [facility] 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 Presence of automatic (implantable) card Diagnosis 12/24/2020 07:52:17 AM EST [facility] I42.0 Dilated cardiomyopathy Dilated cardiomyopathy Diagnosi s 09/23/2020 07:56:58 AM EST [facility] R06.00 ROJAS (dyspnea on exertion) ROJAS (dyspnea on exertion) [id number] 09/23/2020 12:00:00 AM EST [facility] Surgeries/Procedures Procedure Description Date Indications Data Source(s) ECG ROUTINE ECG W/LEAST 12 LDS W/I&R <td>POCT AMB EKG</td><td>Routine</td><td>09/23/2020 9:05 AM EST</td><td> Nonischemic cardiomyopathy</td><td> </td> 09/23/2020 02:05:00 PM EST Nonischemic cardiomyopathy [facility] Nonischemic cardiomyopathy HEPATIC FUNCTION PANEL <td>HEPATIC FUNCTION PANEL</td><td>Routine</td><td>08/25/2020</td><td></td><td> </td> 08/25/2020 12:00:00 AM EST [facility] LIPID PANEL <td>LIPID PANEL</td><td>Rout ine</td><td>08/25/2020</td><td></td><td> </td> 08/25/2020 12:00:00 AM EST [facility] BASIC METABOLIC PANEL CALCIUM TOTAL <td>BASIC METABOLI C PANEL</td><td>Routine</td><td>08/25/2020</td><td></td><td> </td> 08/25/2020 12:00:00 AM EST [facility] Results ID Date Data Source [id number] 06/17/2021 10:51:04 AM EDT [facility] Name Value Range Interpretation Code Description Data Candice rce(s) Supporting Document(s) &PDF [facility] BXDZYq9pWjMLFiKv72/AIPpcDSXzg8PjWOmoUOp4PBdhFIEmA2PgfOpmZOjBNVGDT3VELPNKB12QFdOY vci [file] GsOABPTf/5+HxBV++f//recruitment director+478fQHFgR6L4JEj+SbF6XpHT/pNOT6WRu+n//67dCQxIJRhtDD1joT1K [file] 9hXWPESq2+UUbzfOZxxPnvENJFQbKvEmX2GXegEQEPOh5O ID Date Data Source [id number] 03/05/2021 06:13:11 PM EDT [facility] Name Value Range Interpretation Code Description Data Candice rce(s) Supporting Document(s) &PDF [facility] SMXOVn7vIgHFIhWw52/ULPqgBHEyx8RmPHphXIq8ITkcYSSsZ7TsyRtpVDpOXOAXR4IGAYZNJ86JVkKX 0b3 RiSSNnNqYVcKW3MY7kWKIspxHkoeY2rT8jBW7GETI+Vw0BCN4hk7XyEMq8DOWww9FeJYfuDFn9X3TitM MkplAkPrxnjKOCYKCuGIJkS6jtzrj9mJPyUSYsDw1RHzCsg3NuISRqNEmAdt1mM1/cuBV+L9D/QKDoIg tMKn8nkcYSsUvTDujEwcRa2UMNd1sZhbaYq6mRdeg5 2eSrljQFvZN1vlqS2HGSXInN+YvgXl3isnne/xKb9OxKnDJV/13/ArwCxojn461tRAnB311hwuryeNdp aqqqF+w/Bfv+qSiTUgcZySSLwnh67FNXiMZ8reNnOC4d8pik/RtSY682pOuQwGMgVzEWxgyI1fi7NGup aqjTmr8o8HA0CUaTLkBhJ25PBEPDcHGZtinn+HRVNU elxowgLQ8Hpf9ffipZbBrR9zNd8kjCx/4DjgE+gYIshO1Bmre3LIgsCtLT8FujwD2nPXaZygaAr194WK ignUO89TCUxP8dN2zWnzU5pad2ZDjNIvlhhQJ6zGbEgAI17lF4focWcnJYtsPYtdOkD0714mLh0kgGx+ QHra4WD25zpkokBjwBg9pfw4AgNXPRPr5av/s/UQGU yPDRcUH4B6FkEBW2AE3Xt0fiI19WFdgw8TlGS92nbC51uR8BC1PZCPNSJVs5u1MtE7xWaiwfI9uWu/DV TU0hsrTCWUeFdjaaKYuvjWpQKx4FJ8ToBFl69jO5mVfwSq0UKK9vg3X6dngVz0qrjvci73U0cTbPdGQ0 uOUc1sBpWGCKK0v8dPgpsySixBH9XDORMU0lWxt+FO BFFuwJqWSB/NpDbJAucJlMznNbzQqaXjCyGQXpLKoiX6e7OJK3yCOnsqTcDFNeHlUJcs8rk/hM7hCA90 Lmq4E78OIPnany/P4RpUo//htFg38nBietvJIWu+qXbf9ZjQPuCveB4EjCRaFLdGir6l010bMfj32cb8 Okimv3i9phyVDZECUsBLRLmDPm4u1RMNJQmwYJPHP9 [file] GsOABPTf/5+HxBV++f//recruitment director+296xAMFbL5I6HMn+Jy D3XySC/dVFF0YUl+n//69lXHlZJFsuOS9ykV5U6H19jnmbEBOq1oQ8Ru+BAr0+J/+lQwX8f/8Hg3/ZUI O1f0EKeXsOJ9FDH2oJd/cmN81noI4oFMAAWJ1IXD2LFE9ix8BiHSOcXRjmfgEvBbkAMqDvDUPiy5ExMR l5QK9HEYQmFPxgUU6RX3KbHGR8K5E4BmT3eHQhCO3w A0LlHrPzDV1fcNl2I4PqxUKDLTHSw50lo99cisUdQU4Lz8mgmfOwQGBaI8QslhdtISSKLz6SuSY9oCOe Ol7ONIjykGZoWAGxYTUyB9NzLWCsHQ4WtGc3BBXjYo3WoDF8DCHeY50pPI2QNkXgT2SFUPRkQBR2UTFx UiANCj4+POukzMRpCU5YDzdJ+///PwMYBGRUQBADbv AfDECKEyqIV4+tOYqiuF1zUp2AJfAuss+hoYFE/xaQqJ64+ELWghQFHqjRgTV+QSmfbwvkR7yMAxrpy5 vaU0Kj9cPU5ZFxIgyvApZWkuMl+ILoWRBMB6y8HTdnyxKbkSDhQJ0QGjOgZS0tgx0RIaJwJBZsGscSZb bbKTzuojToBslJGwJkEPNpQvdGErj8ZRfgUJ0Inn2d G4R2HDqcLLYXK8VaiBHhKM1tN5RFO1pbPCtmNv4EFmAlR7YmxaGdHKnoY7VuYRVpKDFrIp9GZXDaEC7B JSFnDqImTHMTNwMsIPQzBnGrHFtuHXVPAFhkPIAiN7NuDXKdEEXpPj1SNSQqTJ3CGIQnTATqKCJ+Pg0K IPSpLX2drcYkmYD6MZJiqA0lYMPoQGMdDXEOOgOsMY IzxG8kVMKvCuFgLMKPCnRdUVJbjV6gDtJhTsLpBISAIoQuZAKmqM7hInJxQWQxMXVSJqWbYPKzcF3lBK VgNPOoYBKBQnEjLIHppA4uGDJvBXOeFJU+Hx1BEQVrWBx6J0R3AKGkHPj4O5CRX6HEMFRwGKmpLPulBN MaXHi0X1O3LNBoO7AEB4Zwgxwlrs6+NT3SX63RCSKx ZCa1O0T9jXLjD0G5yTrEtGE2IG6WJQ8FzHs3lDJguZ0+RL9OO0RJGvPuKKm0M7V5tCWtY6R3fGvSrKU6 BV9WQV8TkEXnTKWygiDiRo2eE3IHDUuEXgSNJZV3UZ1QyWGfTY4CmXUQN7YtgWRcSd3fXGcytOMspM8o Bn9kQRwyVT3DRsVRXCpZKZB0XU0OnYPrIA0IoDKRS6 FcsJMdXh3eCEqvtETlxl3+FS1HVYYmUx0WUm0+TUntlkIlHqoGWfTmUOIcm0YkQEj6MC9LKW9ipWggBW P8Ro9EnXD2wZLfO1xMHD3ShSNjV24ptXQsZVSvKn1QLcA3wbTutS3CZA61cDHgs7M4ZHHlQ5koTIvpm5 1zYVxbYTbQIS1aDDGEDSweZHvzMVS7RcBhzgrfJINj Mf2CXmGmFBd2lQ7coGF0VRS3LjghgHNtEKrhAdHzFfLqZoW4tWodira1DTblIZ7lTPimmbulPDYwEbw+ ERwtOBBtZUWeQpdUPPYhrJ5wweY6weVdOHacgSJlJw1mp3k5VsjcHs4sLl5iHUg0LoGpEbWbZXLjTt8u eU92QMrwzgYlFd0TUwBeWHI2S9VsFzhQPSU+DQogID llmCm6aZZcNFWlFd9QSQXsEGSkZBXsSCVfDXUkPOUaQJPkQHAxPLCxMULdEGLpNZOqCJUbNYTmRAInSY IpVHFhAZStZVMlJCNxAHFlKMAwHSAoPJWuBIUrKSRhHASyOZLwCZIzZVGkSMPeGQZbNMDvXO9VHKLyJG AgICAgICAgICAgICAgICAgICAgICAgICAgICAgICAg ICAgICAgICAgICAgICAgICAgICAgICAgICAgICAgICAgICAgICAgICAgICAgICAgICAgICAgICAgICAg HGEbAR2GABUxWLEtLTCjMAJfBGAzTQPcMZJwIFEuADGsUHSmLQQzSGPmYIFdFZYhSWEiGGKxTFYnTGZc ICAgICAgICAgICAgICAgICAgICAgICAgICAgICAgIC QcSUXuMQLzOTWzHTPcGD0KYSLaVDUsYUFzLUEvUJPcGEVdCKRfEKQzEXNkVAEwBSMyQXJtITSaOVYdMO ZvFMJiYTOrKAFzATOaMJUjGCGlIWCkWGLrKWFwDBLmFQGjXFCaFGBjBBRnGBDtSGSdOQDqLHUdAX9UBU AgICAgICAgICAgICAgICAgICAgICAgICAgICAgICAg ICAgICAgICAgICAgICAgICAgICAgICAgICAgICAgICAgICAgICAgICAgICAgICAgICAgICAgICAgICAg LHMmHCUpKO4BPYGfDXFzCEJdJEZsTSRxBASeVNTzGTLzEVWpWLFvRQKtRNQwDAAlCOXkOMMpIUSoUXBk ICAgICAgICAgICAgICAgICAgICAgICAgICAgICAgIC SvABOvMPMrHPQkBTRwDTSzTG6TJZIoKABdXKOtREQxRUNmFRZwZVUyMWVkPHGgSDUjPRIwPWHvOKAaPL AgICAgICAgICAgICAgICAgICAgICAgICAgICAgICAgICAgICAgICAgICAgICAgICAgICAgICAgICAgIA 0KICAgICAgICAgICAgICAgICAgICAgICAgICAgICAg ICAgICAgICAgICAgICAgICAgICAgICAgICAgICAgICAgICAgICAgICAgICAgICAgICAgICAgICAgICAg BPKbULFfTVDkBM9RMEJqWESnWWNjYJJlWFYmCPAgZKDzNECaCUQzJYCaCEMoLPXrERJfIUJjNUNkSEMb ICAgICAgICAgICAgICAgICAgICAgICAgICAgICAgIC AtGTLnIKJkNICuVDEjCTZmBXCfIP3CUBWwSMMjYHKvCXBaKDHhXBAeGNAuVWNbUBKjLGVwLHQxDKLvMG AgICAgICAgICAgICAgICAgICAgICAgICAgICAgICAgICAgICAgICAgICAgICAgICAgICAgICAgICAgIC RaCS5WIM98jLZjg2Z7WNLyTU7oyir/Xk8TXIxmkwUh lDNwVF3MVcAuLT3jxh8FLmWpXG4xio5OQCaZCpHbX7Y6jWLmNGBaXQQYHwFeM11xRLvjWx20KSssIBFa PbPjYKz9Dl0MJuJjR9iuLKSdQmA7EWUvQnW1ZAWkDhAdKRfzLW9Pd4RjqJGjMAh+Kk7BVH3cl2TqROoe BxIzNK7xob0XVBsJObSjQ7X5uCReJ7I6CTiaIq1XVA UvRRXyKwZyXFWEOTneXI5PDT9mgaN7IR4ZvDWeCNTePBMmvEJpFGd4E76rnRFtKCroUI4VCVA+Gil+Pg 7TRILvZFPsXTLpPaAqLKMURcYpR25ubPHaNFXbEIRiRWYsDb4YHRCuF5BpcyIgxHhkgzDvAWDjKSJZZF 0UNAnwjtRtmRNwnZxtMT33jGpvIF7SHk0KVkCvZV9n im1PqGMuAz2SUVTcNF4RZMAsVFFkQCLqCIR9MMEfUgCoBNsqNVUfMRCmKKA8GFYaKLWsJU3CXjErPNSp ERi8CKRpQPZoIMNndk9WHVTsJMJtFWIvIlFqOSGtVZEdQLidMPRoFXEhXKi8ZOWePKZjVF1YZmBePLMo JBB4FKMlOREeFXJiqa5AUUDkJARiDhJfERUxLJOeWT YoFJilKJLpCYN0STV2GAJsMCTqPZ3XVtSpNONzWUN9KpYrEZUcPXEman8LNTTqLNGrPTL8OGKdSGKyJZ XwNCmkHRUbQFA7ESf1JZZwDGAmLE7EEkVgGEBdKAMzRwguOSLdEEQmvf7JCGQxINAsXuIyKhMyMTZjUJ FlZNhqALWpBZA2TkG3YKSsWOAsZZ0URxOcGZFqBAg9 TKusZIXnXGYwwb7JVHCeALRmZhJ5SkZjMJKhGOAoFRniHFAzHEOoYKgzTOVgAFTvCE2ZLjFeMJVcCOW9 CKSiUXLaTONesc3SUAPwPSDhYoB5WgNoPVMkBQVeFQvpUMAuQBBqLDh6XIWiDIWcXY4LDuUuKPOjAJPw DzYzZYCnWLOxym8DVWGyTACjXZDrShRwIUWoPIYsNY ctWJIaMNF5LGw0WVVcJXZqMO4XBiOtORXdCJR3PfNhGAFzYZLetr1VZINfOKEfKADhZzZqWZYyPHUeJK vwOGHyOKA0XfedVRDdPPAxDP7IMsCyWZCfVHNtCRHkJCRkBYQvqe8UYZVuNEMxWnDjZxFsCLJoRLDzHY lmIDYyUGG9TiGzVHPuUQMtJF4ZArGnWDNtBAQ8HaYr BJLqUTFvem6XOUGeVZSwXdLhSKUmOENvBMMhBGkxOWIhAOZ8YWDzHCNuLSKoKR8ZFyCfMPOqTPyzSdhm MWNxWQSska7WOJXoVIRzBVFkSPKnYTAjUVCbCEv7ouGdqQAuNCy4YQ9TY5VewnZbGiVSVv8Ij836KPHy TWGrPb6CB9lgZh1oIQGlSPYYPy8OXEe5WPBfISOqDR edYewiFCRbEMJfHQHmYjM9JTP5UAAeYvK+MRf1HiD3YVAvPTK3IKVwCMM2Z7PjSkY2UAB3WUz2BQGvHh 1eBFKUIn8+GIirhNOtnWmxORPNYnV8Vyu9PLqhBLFTVg6R ID Date Data Source [id number] 02/15/2021 07:01:00 AM EDT [facility] FASTING:YESFASTING: YESReceived: 021 at 07:36:00 QPT: [facility], [address], [address] [place] [address], [phone], Efren Collins MD Received: 02/14/2021 at 07:36:00 QPT : [facility], [address], [address] [place] [address], [phone], Efren Collins MD Received: 02/14/2021 at 07:36:00 QPT : [facility], [address], [address] [place] [address], [phone], Efren Collins MD Received: 02/14/2021 at 07:36:00 QPT : [facility], [address], [address] [place] [address], [phone], Efren Collins MD Received: 02/14/2021 at 07:36:00 QPT : [facility], [address], [address] [place] [address], [phone], Efren Collins MD Received: 02/14/2021 at 07:36:00 QPT : [facility], [address], [address] [place] [address], [phone] MD Received: 02/14/2021 at 07:36:00 QPT : [facility], [address], [address] [place] [address], [phone] MD Received: 02/14/2021 at 07:36:00 QPT : [facility], [address], [address] [place] [address], [phone] MD Received: 02/14/2021 at 07:36:00 QPT : [facility], [address], [address] [place] [address], [phone] MD Name Value Range Interpretation Code Description Data Candice rce(s) Supporting Document(s) ID Date Data Source [id number] 02/15/2021 05:17:00 AM EDT [facility] FASTING:YESFASTING: YESReceived: 021 at 07:36:00 QPT: [facility], [address], [address] [place] [address], [phone], Efren Collins MD Received: 02/14/2021 at 07:36:00 QPT : [facility], [address], [address] [place] [address], [phone], Efren Collins MD Received: 02/14/2021 at 07:36:00 QPT : [facility], [address], [address] [place] [address], [phone], Efren Collins MD Received: 02/14/2021 at 07:36:00 QPT : [facility], [address], [address] [place] [address], [phone] MD Received: 02/14/2021 at 07:36:00 QPT : [facility], [address], [address] [place] [address], [phone] MD Received: 02/14/2021 at 07:36:00 QPT : [facility], [address], [address] [place] [address], [phone] MD Received: 02/14/2021 at 07:36:00 QPT : [facility], [address], [address] [place] [address], [phone] MD Received: 02/14/2021 at 07:36:00 QPT : [facility], [address], [address] [place] [address], [phone] MD Received: 02/14/2021 at 07:36:00 QPT : [facility], [address], [address] [place], [address], Efren Collins MD Name Value Range Interpretation Code Description Data Candice rce(s) Supporting Document(s) Cholesterol [Mass/volume] in Serum or Plasma 170 mg/dL <20 0 Normal (applies to non-numeric results) [facility] ID Date Data Source [id number] 02/15/2021 05:17:00 AM EDT [facility] FASTING:YESFASTING: YESReceived: 021 at 07:36:00 QPT: [facility], [address], [address] [place] [address], [phone], Efren Collins MD Received: 02/14/2021 at 07:36:00 QPT : [facility], [address], [address] [place] [address], [phone] MD Received: 02/14/2021 at 07:36:00 QPT : [facility], [address], [address] [place] [address], [phone] MD Received: 02/14/2021 at 07:36:00 QPT : [facility], [address], [address] [place] [address], [phone] MD Received: 02/14/2021 at 07:36:00 QPT : [facility], [address], [address] [place] [address], [phone] MD Received: 02/14/2021 at 07:36:00 QPT : [facility], [address], [address] [place] [address], [phone] MD Received: 02/14/2021 at 07:36:00 QPT : [facility], [address], [address] [place] [address], [phone] MD Received: 02/14/2021 at 07:36:00 QPT : [facility], [address], [address] [place], [address], Efren Collins MD Received: 02/14/2021 at 07:36:00 QPT : [facility], [address], [address] [place], [address], Efren Collins MD Name Value Range Interpretation Code Description Data Candice rce(s) Supporting Document(s) Cholesterol in HDL [Mass/volume] in Serum or Plasma 36 mg/dL > OR = 40 Below low normal [facility] ID Date Data Source [id number] 02/15/2021 07:01:00 AM EDT [facility] FASTING:YESFASTING: YESReceived: 021 at 07:36:00 QPT: [facility], [address], [address] [place] [address], [phone] MD Received: 02/14/2021 at 07:36:00 QPT : [facility], [address], [address] [place] [address], [phone] MD Received: 02/14/2021 at 07:36:00 QPT : [facility], [address], [address] [place] [address], [phone] MD Received: 02/14/2021 at 07:36:00 QPT : [facility], [address], [address] [place] [address], [phone] MD Received: 02/14/2021 at 07:36:00 QPT : [facility], [address], [address] [place] [address], [phone] MD Received: 02/14/2021 at 07:36:00 QPT : [facility], [address], [address] [place] [address], [phone] MD Received: 02/14/2021 at 07:36:00 QPT : [facility], [address], [address] [place], [address]Efren MD Received: 02/14/2021 at 07:36:00 QPT : [facility], [address], [address] [place], [phone] MD Received: 02/14/2021 at 07:36:00 QPT : [facility], [address], [address] [place], [address], Efren Collins MD Name Value Range Interpretation Code Description Data Candice rce(s) Supporting Document(s) Cholesterol [Mass/volume] in Serum or Plasma 170 mg/dL <20 0 Normal (applies to non-numeric results) [facility] ID Date Data Source [id number] 02/15/2021 05:17:00 AM EDT [facility] FASTING:YESFASTING: YESReceived: 021 at 07:36:00 QPT: [facility], [address], [address] [place] [address], [phone] MD Received: 02/14/2021 at 07:36:00 QPT : [facility], [address], [address] [place] [address], [phone] MD Received: 02/14/2021 at 07:36:00 QPT : [facility], [address], [address] [place] [address], [phone] MD Received: 02/14/2021 at 07:36:00 QPT : [facility], [address], [address] [place] [address], [phone] MD Received: 02/14/2021 at 07:36:00 QPT : [facility], [address], [address] [place] [address], [phone] MD Received: 02/14/2021 at 07:36:00 QPT : [facility], [address], [address] [place], [address]Efren MD Received: 02/14/2021 at 07:36:00 QPT : [facility], [address], [address] [place], [phone] MD Received: 02/14/2021 at 07:36:00 QPT : [facility], [address], [address] [place], [address]Efren MD Received: 02/14/2021 at 07:36:00 QPT : [facility], [address], [address] [place] [address], [phone], Efren Collins MD Name Value Range Interpretation Code Description Data Candice rce(s) Supporting Document(s) Triglyceride [Mass/volume] in Serum or Plasma 204 mg/dL <150 Above high normal [facility] If a non-fasting specimen was collected, considerrepeat triglyceride testing on a fasting specimenif clinically indicated.Harrison et al. J. of Clin. Lipidol. 2015;9:129-169. ID Date Data Source [id number] 02/15/2021 05:17:00 AM EDT [facility] FASTING:YESFASTING: YESReceived: 021 at 07:36:00 QPT: [facility], [address], [address] [place], [phone] MD Received: 02/14/2021 at 07:36:00 QPT : [facility], [address], [address] [place], [address]Efren MD Received: 02/14/2021 at 07:36:00 QPT : [facility], [address], [address] [place], [address]Efren MD Received: 02/14/2021 at 07:36:00 QPT : [facility], [address], [address] [place] [address], [phone] MD Received: 02/14/2021 at 07:36:00 QPT : [facility], [address], [address] [place], [address], Efren Collins MD Received: 02/14/2021 at 07:36:00 QPT : [facility], [address], [address] [place], [address], Efren Collins MD Received: 02/14/2021 at 07:36:00 QPT : [facility], [address], [address] [place], [address], Efren Collins MD Received: 02/14/2021 at 07:36:00 QPT : [facility], [address], [address] [place], [address], Efren Collins MD Received: 02/14/2021 at 07:36:00 QPT : [facility], [address], [address] [place], [address], Efren Collins MD Name Value Range Interpretation [...] of LDL-C.Joseph MARTINEZ et al. ADAMS. 2013;310(19): 0896-2523([email or web address]/faq/[email or web address]) ID Date Data Source [id number] 02/15/2021 05:17:00 AM EDT [facility] FASTING:YESFASTING: YESReceived: 021 at 07:36:00 QPT: [facility], [address], [address] [place], [address]Efren MD Received: 02/14/2021 at 07:36:00 QPT : [facility], [address], [address] [place], [address], Efren Collins MD Received: 02/14/2021 at 07:36:00 QPT : [facility], [address], [address] [place], [address], Efren Collins MD Received: 02/14/2021 at 07:36:00 QPT : [facility], [address], [address] [place] [address], [phone], Efren Collins MD Received: 02/14/2021 at 07:36:00 QPT : [facility], [address], [address] [place] [address], [phone], Efren Collins MD Received: 02/14/2021 at 07:36:00 QPT : [facility], [address], [address] [place] [address], [phone], Efren Collins MD Received: 02/14/2021 at 07:36:00 QPT : [facility], [address], [address] [place] [address], [phone] MD Received: 02/14/2021 at 07:36:00 QPT : [facility], [address], [address] [place] [address], [phone] MD Received: 02/14/2021 at 07:36:00 QPT : [facility], [address], [address] [place] [address], [phone] MD Name Value Range Interpretation Code Description Data Candice rce(s) Supporting Document(s) Cholesterol.total/Cholesterol in HDL [Mass Ratio] in Serum o r Plasma 4.7 (calc) <5.0 Normal (applies to non-numeric results) [facility] ID Date Data Source [id number] 02/15/2021 05:17:00 AM EDT [facility] FASTING:YESFASTING: YESReceived: 021 at 07:36:00 QPT: [facility], [address], [address] [place], [address], Efren Collins MD Received: 02/14/2021 at 07:36:00 QPT : [facility], [address], [address] [place] [address], [phone], Efren Collins MD Received: 02/14/2021 at 07:36:00 QPT : [facility], [address], [address] [place] [address], [phone], Efren Collins MD Received: 02/14/2021 at 07:36:00 QPT : [facility], [address], [address] [place] [address], [phone], Efren Collins MD Received: 02/14/2021 at 07:36:00 QPT : [facility], [address], [address] [place] [address], [phone], Efren Collins MD Received: 02/14/2021 at 07:36:00 QPT : [facility], [address], [address] [place] [address], [phone] MD Received: 02/14/2021 at 07:36:00 QPT : [facility], [address], [address] [place] [address], [phone] MD Received: 02/14/2021 at 07:36:00 QPT : [facility], [address], [address] [place] [address], [phone] MD Received: 02/14/2021 at 07:36:00 QPT : [facility], [address], [address] [place] [address], [phone] MD Name Value Range Interpretation Code Description Data Candice rce(s) Supporting Document(s) Cholesterol non HDL [Mass/volume] in Serum or Plasma 134 mg/dL ( calc) <130 Above high normal [facility] For patients with diabetes plus 1 major ASCVD riskfactor, treating to a non-HDL-C goal of <100 mg/dL(LDL-C of <70 mg/dL) is considered a therapeuticoption. ID Date Data Source [id number] 02/15/2021 07:01:00 AM EDT [facility] FASTING:YESFASTING: YESReceived: 021 at 07:36:00 QPT: [facility], [address], [address] [place] [address], [phone] MD Received: 02/14/2021 at 07:36:00 QPT : [facility], [address], [address] [place] [address], [phone] MD Received: 02/14/2021 at 07:36:00 QPT : [facility], [address], [address] [place] [address], [phone] MD Received: 02/14/2021 at 07:36:00 QPT : [facility], [address], [address] [place] [address], [phone] MD Received: 02/14/2021 at 07:36:00 QPT : [facility], [address], [address] [place] [address], [phone] MD Received: 02/14/2021 at 07:36:00 QPT : [facility], [address], [address] [place] [address], [phone] MD Received: 02/14/2021 at 07:36:00 QPT : [facility], [address], [address] [place] [address], [phone] MD Received: 02/14/2021 at 07:36:00 QPT : [facility], [address], [address] [place], [address], Efren Collins MD Received: 02/14/2021 at 07:36:00 QPT : [facility], [address], [address] [place], [address], Efren Collins MD Name Value Range Interpretation [...] is approximately 13% higher for peopleidentified as -Canadian. eGFR NON-AFR. [place] 91 mL/min/1.73m2 > OR = 60 Normal [...] results) [facility] ID Date Data Source [id number] 02/15/2021 07:01:00 AM EDT [facility] FASTING:YESFASTING: YESReceived: 021 at 07:36:00 QPT: [facility], [address], [address] [place], [phone], Efren Collins MD Received: 02/14/2021 at 07:36:00 QPT : [facility], [address], [address] [place] [address], [phone] MD Received: 02/14/2021 at 07:36:00 QPT : [facility], [address], [address] [place] [address], [phone], Efren Collins MD Received: 02/14/2021 at 07:36:00 QPT : [facility], [address], [address] [place] [address], [phone] MD Received: 02/14/2021 at 07:36:00 QPT : [facility], [address], [address] [place] [address], [phone], Efren Collins MD Received: 02/14/2021 at 07:36:00 QPT : [facility], [address], [address] [place] [address], [phone] MD Received: 02/14/2021 at 07:36:00 QPT : [facility], [address], [address] [place] [address], [phone] MD Received: 02/14/2021 at 07:36:00 QPT : [facility], [address], [address] [place] [address], [phone] MD Received: 02/14/2021 at 07:36:00 QPT : [facility], [address], [address] [place] [address], [phone] MD Name Value Range Interpretation Code Description [...] copy faxed has been acknowledged. Queued to: [id number] ID Date Data Source [id number] 11/09/2020 05:32:51 PM EST [facility] Name Value Range Interpretation Code Description Data Candice rce(s) Supporting Document(s) &PDF [facility] VCPVXj5cUlSEVvFl54/VGYfqDBEaj1VtPZljIBv9XLdqOIYyE1AanApyPUzYVGTYP9VTWONXR87UTuPW 0b3 [file] x6LDivKoX3PJU5WmSaMCMtYS9vLGIHUw1+RPigjRAjaVfzADXYPqI0OeG1EEmiHZOBIz3I ID Date Data Source [id number] 06/21/2020 04:19:57 PM EDT [facility] Name Value Range Interpretation Code Description Data Candice rce(s) Supporting Document(s) &PDF [facility] ONMKDb7cEnCCSrPd95/IPJepPKUjm5HpMStpPTr6CJauRMXnR8TswCayUEsMDYOOW0TLHTTRA98DIqSM vci [file] ICAgICAgICAgICAgICAgICAgICAgICAgICAgICAgICAgICAgICAgICAgICAgICAgICAgICAgICAgICAg ICAgICAgICAgICAgICAgICAgDQogICAgICAgICAgIC AgICAgICAgICAgICAgICAgICAgICAgICAgICAgICAgICAgICAgICAgICAgICAgICAgICAgICAgICAgIC AgICAgICAgICAgICAgICAgICAgICAgICAgICAgDQogICAgICAgICAgICAgICAgICAgICAgICAgICAgIC AgICAgICAgICAgICAgICAgICAgICAgICAgICAgICAg ICAgICAgICAgICAgICAgICAgICAgICAgICAgICAgICAgICAgICAgDQogICAgICAgICAgICAgICAgICAg ICAgICAgICAgICAgICAgICAgICAgICAgICAgICAgICAgICAgICAgICAgICAgICAgICAgICAgICAgICAg ICAgICAgICAgICAgICAgICAgICAgDQogICAgICAgIC AgICAgICAgICAgICAgICAgICAgICAgICAgICAgICAgICAgICAgICAgICAgICAgICAgICAgICAgICAgIC AgICAgICAgICAgICAgICAgICAgICAgICAgICAgICAgDQogICAgICAgICAgICAgICAgICAgICAgICAgIC AgICAgICAgICAgICAgICAgICAgICAgICAgICAgICAg ICAgICAgICAgICAgICAgICAgICAgICAgICAgICAgICAgICAgICAgICAgDQogICAgICAgICAgICAgICAg ICAgICAgICAgICAgICAgICAgICAgICAgICAgICAgICAgICAgICAgICAgICAgICAgICAgICAgICAgICAg ICAgICAgICAgICAgICAgICAgICAgICAgDQogICAgIC AgICAgICAgICAgICAgICAgICAgICAgICAgICAgICAgICAgICAgICAgICAgICAgICAgICAgICAgICAgIC AgICAgICAgICAgICAgICAgICAgICAgICAgICAgICAgICAgDQogICAgICAgICAgICAgICAgICAgICAgIC AgICAgICAgICAgICAgICAgICAgICAgICAgICAgICAg ICAgICAgICAgICAgICAgICAgICAgICAgICAgICAgICAgICAgICAgICAgICAgDQogICAgICAgICAgICAg ICAgICAgICAgICAgICAgICAgICAgICAgICAgICAgICAgICAgICAgICAgICAgICAgICAgICAgICAgICAg BCYeYERuGUQsRHCzEBBiLWDdVEYmRXSyKVFtLAl6I1 plUSNfCLFbSN0wBXh7Vw2+YXdBGkBeZII6klMxeS2VYC3gy2FwKIpfZCJzj9FrGTh3LG2XJBCuPUtiMK 8AHRjfmn3SGEZyEKZwfCOTk0zvZfOkYFO6WQAnCbebLD0VZPOtA6mlykGfCZFnTHVOLAkaUAMIYV2GBz FiX9WsgF20QLUTFw8+VHsfpaKyAclFXxO4OQYwo7Ir EMx2YK2CRKSmFOntAB5CADEkuH7bJDrdAW7FZpOxAfKwYPEANkMsB76fnRJyOSq2H9SiVlQrYNOgLmqo ZXMgPDwvTmFtZXMgWyBdDQogID4+ID4+CDayVD4VUHgwppArYCLrKv6SVPMbQHN6MDWbjZSvPNwbTZYH CNxkKV0KjUEnFRR3tQ6mAJueXLDsEZAiR0qHEbTuiY gjXZ53bOacapYrkRTdRSn+Ow1NLZ4fm4AiAXe3plNvUKxuIRD6BJmkBWGqCBCxQRXaELD3CZS5IUIMXk KqNOSvAGCxJAlhRPZuUTDqcd6KPMDtOAObFYLyVaPoOXIqHWHwSKogQLCvCRY2EGQ0VFFiOYSpIH5VPq NiKFNeXFNqCZAbZPYhYNIyyn8XQGJwYTZdLmH2AkGf ZFNhLQIoDEttQTIlCWQzHeCpVWVyZHOtMX8SQpAyYEYoHWD9HLAjJLWzIBQayk7NAIOsXXSbLVAtWEMh STSuQVLsRYdtVESuHVR9VAW7NFNcYAHpJB7XIqAfLVYyIHGoGrKjBALiVTHxry3SZRZiXRFgAOA0TZMh QOEzQGRqWSagMPAoNGV9SyM9CMErIDUsOC4GUfBxZN HrYMN5AFZjVFElFNBxmp3PLMWdDUVrDaD2ZDSrJAJjELPuRZjeHCIoLSFcDwp0FXRzJVEgVL6WJpZwJZ CaWXY3AYYxQIMlWRLhsl0XVGCwBCPrVEwdBCCfKJTuTLOdCMbmLHJdEJU9KaQlAGRnVWQtYL2VOcSnIV kqFEZZBhf0YDmvX1q4UUZxPM1IB9Dnb2NgCYruSMVJ VXohUU6cnuSnVYKiGv2CL5wEJmspPTztWEZgLrRgIwO4G8QtZMGzFgY5JHQsFFXwKBJyJA4cEROmMRXf ZQEzPBVxAzteSWH1MANbBpBhRlA9JnPyB0IrFyPfNO6DEy8FLvB8JVH8mFEaKo6QVOr5RYUTWfIyQE6H DQo= Procedure Social History Code Duration Value Status Description Data Source(s ) Alcohol intake 04/29/2021 12:00:00 AM EDT Current non-d jacky of alcohol (finding) completed Current non-drinker of alcohol (finding) [facility] Smoking 03/10/2021 12:00:00 AM EDT - 10/15/2000 12:00:00 AM EST Patient is a former smoker completed Patient is a former smoker [facility] ([facility], ) Smoking 02/10/2021 12:00:00 AM EDT Former Smoker completed Former Smoker eCW1 ([facility]) Smoking 02/10/2021 12:00:00 AM EDT Former Smoker completed Former Smoker eCW1 ([facility]) Smoking 02/10/2021 12:00:00 AM EDT Former Smoker completed Former Smoker eCW1 ([facility]) Alcohol intake 12/24/2020 12:00:00 AM EST No completed [facility] Cigarette pack-years 12/24/2020 12:00:00 AM EST UNK completed [facility] Cigarettes smoked current (pack per day) - Reported 12/25/19 12:00:00 AM EST UNK completed [facility] Smoking 12/24/2020 12:00:00 AM EST Former smoker completed Former smoker [facility] Alcohol intake 09/23/2020 12:00:00 AM EST No completed [facility] Cigarette pack-years 09/23/2020 12:00:00 AM EST UNK completed [facility] Cigarettes smoked current (pack per day) - Reported 09/23/20 20 12:00:00 AM EST UNK completed [facility] Smoking 09/23/2020 12:00:00 AM EST Former smoker completed Former smoker [facility] Smoking 08/11/2020 12:00:00 AM EDT Former Smoker completed Former Smoker eCW1 ([facility]) Smoking 08/11/2020 12:00:00 AM EDT Former Smoker completed Former Smoker eC1 ([facility]) Vital Signs ID Date Data Source UNK Name Value Range Interpretation Code Description Data Source(s) Systolic blood pressure 118 mm[Hg] 118 mm[Hg] [facility] Diastolic blood pressure 60 mm[Hg] 60 mm[Hg] [facility] Heart rate 59 /min 59 /min [facility] Body height 177.8 cm 177.8 cm [facility] Body weight 97.523 kg 97.523 kg [facility] Body mass index (BMI) [Ratio] 30.85 kg/m2 30.85 kg/m2 [facility] Oxygen saturation in Arterial blood by Pulse oximetry 98 % 98 % [facility] Systolic blood pressure 120 mm[Hg] 120 mm[Hg] M EDENT ([facility], ) Diastolic blood pressure 70 mm[Hg] 70 mm[Hg] MEDENT ([facility], ) Heart rate 64 /min 64 /min MEDENT ([facility], ) Oxygen saturation in Arterial blood by Pulse oximetry 96 % 96 % MEDWHIT ([facility], ) Body height 70 [in_i] 70 [in_i] CHRISTYENT ([facility], ) 5'10" Body weight 232.12 [lb_av] 232.12 [lb_av] MEDEN T ([facility]) Body mass index (BMI) [Ratio] 33.3 kg/m2 33.3 k g/m2 [place] ([facility]) [place] body weight 166 [lb_av] 166 [lb_av] MEDEN T ([facility]) Body weight 105.292 kg 105.292 kg [place] ([facility]) Body surface area Derived from formula 2.22 m2 2.22 m2 [place] ([facility]) Body weight 216 [lb_av] 216 [lb_av] eCW1 ([facility]) Body height 70 [in_i] 70 [in_i] eCW1 ([facility]) Body mass index (BMI) [Ratio] 30.99 kg/m2 30.99 kg/m2 W1 ([facility]) Heart rate 82 /min 82 /min eCW1 ([facility]) Respiratory rate 18 /min 18 /min eCW1 ([facility]) Body temperature 96.3 [degF] 96.3 [degF] eCW1 ( [facility]) Systolic blood pressure 130 mm[Hg] 130 mm[Hg] e CW1 ([facility]) Diastolic blood pressure 62 mm[Hg] 62 mm[Hg] eCW1 ([facility]) Body mass index (BMI) [Ratio] 30.71 kg/m2 30.71 kg/m2 [facility] Systolic blood pressure 116 mm[Hg] 116 mm[Hg] [facility] Diastolic blood pressure 54 mm[Hg] 54 mm[Hg] [facility] Heart rate 78 /min 78 /min [facility] Body height 177.8 cm 177.8 cm [facility] Body weight 97.07 kg 97.07 kg [facility] Oxygen saturation in Arterial blood by Pulse oximetry 98 % 98 % [facility] Systolic blood pressure 104 mm[Hg] 104 mm[Hg] [facility] Diastolic blood pressure 56 mm[Hg] 56 mm[Hg] [facility] Heart rate 71 /min 71 /min [facility] [place] Body height 177.8 cm 177.8 cm [facility] Body weight 97.523 kg 97.523 kg [facility] Body mass index (BMI) [Ratio] 30.85 kg/m2 30.85 kg/m2 [facility] Oxygen saturation in Arterial blood by Pulse oximetry 97 % 97 % [facility] Body weight 214 [lb_av] 214 [lb_av] eCW1 ([facility]) Body height 70 [in_i] 70 [in_i] eCW1 ([facility]) Body mass index (BMI) [Ratio] 30.70 kg/m2 30.70 kg/m2 W1 ([facility]) Heart rate 77 /min 77 /min eCW1 ([facility]) Respiratory rate 18 /min 18 /min eCW1 ([facility]) Body temperature 96.2 [degF] 96.2 [degF] eCW1 ( [facility]) Systolic blood pressure 96 mm[Hg] 96 mm[Hg] e CW1 ([facility]) Diastolic blood pressure 58 mm[Hg] 58 mm[Hg] eCW1 ([facility]) Patient Treatment Plan of Care Planned Activity Planned Date Details Description Data Source (s) Furosemide 20 MG Oral Tablet 04/29/2021 12:00:00 AM EDT [facility] Furosemide 20 MG Oral Tablet 04/14/2021 12:00:00 AM EDT [facility] carvedilol 25 MG Oral Tablet 04/14/2021 12:00:00 AM EDT [facility] ezetimibe 10 MG Oral Tablet 01/20/2021 12:00:00 AM EDT [facility] Furosemide 20 MG Oral Tablet 12/24/2020 12:00:00 AM EST [facility] ezetimibe 10 MG Oral Tablet 12/24/2020 12:00:00 AM EST [facility] ezetimibe 10 MG Oral Tablet 12/16/2020 12:00:00 AM EST [facility] sacubitril 97 MG / valsartan 103 MG Oral Tablet [Entre sto] 09/23/2020 12:00:00 AM EST [facility] Furosemide 20 MG Oral Tablet 09/23/2020 12:00:00 AM EST [facility] ezetimibe 10 MG Oral Tablet 09/23/2020 12:00:00 AM EST [facility] sacubitril 97 MG / valsartan 103 MG Oral Tablet [Entre sto] 05/11/2020 12:00:00 AM EDT [facility] Furosemide 20 MG Oral Tablet 03/09/2020 12:00:00 AM EDT [facility] [place]-3 Acid Ethyl Esters (SHELTER) 1000 MG Oral Capsule [facility]
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
[2021-08-08 18:04] VITALS: BP 145/68
== END 2021-08-08 18:05 | disposition home or self-care (01) ==
LOC: M ED 15:59
DX: S60.222A Contusion of left hand, initial encounter (principal); W27.8XXA Contact with other nonpowered hand tool, initial encounter; Y92.89 Other specified places as the place of occurrence of the external cause; Y93.9 Activity, unspecified; Y99.0 Civilian activity done for income or pay; I25.10 Atherosclerotic heart disease of native coronary artery without angina pectoris; I50.9 Heart failure, unspecified; Z95.0 Presence of cardiac pacemaker; Z79.82 Long term (current) use of aspirin; Z79.899 Other long term (current) drug therapy; Z91.030 Bee allergy status

== ENCOUNTER → 2021-08-12 | Outpatient (CLI) | payer OTHER ==
[2021-08-12 11:16] LABS: BLOOD UREA NITROGEN 17 MG/DL (7-18); CALCIUM LEVEL 9.6 MG/DL (8.8-10.2); CARBON DIOXIDE LEVEL 31 MEQ/L (21-32); CHLORIDE LEVEL 105 MEQ/L (98-107); CREATININE FOR GFR 0.96 MG/DL (0.70-1.30); GLOMERULAR FILTRATION RATE > 60.0 (>49); GLUCOSE, FASTING 108 MG/DL (70-100); POTASSIUM SERUM 4.7 MEQ/L (3.5-5.1); PROSTATIC SPECIFIC AG MONITOR 5.46 NG/ML (< 4.00); SODIUM LEVEL 141 MEQ/L (136-145)
== END ==
LOC: M PLALAB 08:08
PROVIDERS: ATTEND Family Medicine
DX: I10 Essential (primary) hypertension (principal); N40.1 Benign prostatic hyperplasia with lower urinary tract symptoms; R39.9 Unspecified symptoms and signs involving the genitourinary system

== ENCOUNTER → 2021-09-12 | Outpatient (CLI) | payer OTHER | LOC: M RAD 09:11 | PROVIDERS: ATTEND Family Medicine | DX: Z12.2 Encounter for screening for malignant neoplasm of respiratory organs (principal); Z87.891 Personal history of nicotine dependence; R91.1 Solitary pulmonary nodule; J84.10 Pulmonary fibrosis, unspecified ==

== ENCOUNTER → 2022-02-17 | Outpatient (CLI) | payer OTHER ==
[2022-02-17 10:33] LABS: ALT/SGPT 27 U/L (12-78); BILIRUBIN,TOTAL 0.5 MG/DL (0.2-1.0); BLOOD UREA NITROGEN 13 MG/DL (7-18); CALCIUM LEVEL 9.7 MG/DL (8.8-10.2); CARBON DIOXIDE LEVEL 30 MEQ/L (21-32); CHLORIDE LEVEL 105 MEQ/L (98-107); CHOLESTEROL LEVEL 198 MG/DL (<200); CHOLESTEROL RISK RATIO 5.657 (<5); CREATININE FOR GFR 0.79 MG/DL (0.70-1.30); GLOMERULAR FILTRATION RATE > 60.0 (>49); GLUCOSE, FASTING 96 MG/DL (70-100); HDL CHOLESTEROL 35 MG/DL (>40); LDL CHOLESTEROL 91 MG/DL (<100); NON-HDL-C 163 MG/DL; POTASSIUM SERUM 4.4 MEQ/L (3.5-5.1); PROSTATIC SPECIFIC AG MONITOR 4.82 NG/ML (< 4.00); SODIUM LEVEL 141 MEQ/L (136-145); TOTAL PROTEIN 6.9 GM/DL (6.4-8.2); TRIGLYCERIDES LEVEL 358 MG/DL (<150)
[2022-02-17 10:38] LABS: TOTAL 25(OH) VITAMIN D 76.8 NG/ML (30.0-100.0)
== END ==
LOC: M PLALAB 08:00
PROVIDERS: ATTEND Family Medicine
DX: E78.2 Mixed hyperlipidemia (principal); R97.20 Elevated prostate specific antigen [PSA]; I10 Essential (primary) hypertension; E55.9 Vitamin D deficiency, unspecified

== ENCOUNTER → 2022-02-23 | Outpatient (CLI) | payer OTHER | LOC: M PLAIMG 13:08 | PROVIDERS: ATTEND Family Medicine | DX: R91.8 Other nonspecific abnormal finding of lung field (principal) ==

== ENCOUNTER → 2023-01-26 | Outpatient (CLI) | payer MEDICARE, OTHER | LOC: M WHC 13:27 | PROVIDERS: ATTEND Physician Assistant | DX: M54.2 Cervicalgia (principal) ==

== ENCOUNTER → 2023-01-30 | Outpatient (REF) | payer MEDICARE, OTHER | LOC: M SFHCPLAZ 08:41 | PROVIDERS: ATTEND Family Medicine | DX: I11.0 Hypertensive heart disease with heart failure (principal); I87.2 Venous insufficiency (chronic) (peripheral); E78.2 Mixed hyperlipidemia; R97.20 Elevated prostate specific antigen [PSA]; E55.9 Vitamin D deficiency, unspecified ==

== ENCOUNTER → 2023-01-31 | Outpatient (CLI) | payer MEDICARE, OTHER ==
[2023-01-31 11:04] LABS: PROSTATIC SPECIFIC AG MONITOR 3.77 NG/ML (< 4.00)
[2023-01-31 11:09] LABS: TOTAL 25(OH) VITAMIN D 38.8 NG/ML (20.0-100.0)
[2023-01-31 11:10] LABS: ALBUMIN 3.8 G/DL (3.2-5.2); ALKALINE PHOSPHATASE 79 U/L (46-116); ALT/SGPT 23 U/L (7.0-40); AST/SGOT 21 U/L (<34); BILIRUBIN,TOTAL 0.5 MG/DL (0.3-1.2); BLOOD UREA NITROGEN 17 MG/DL (9-23); CALCIUM LEVEL 9.1 MG/DL (8.3-10.6); CARBON DIOXIDE LEVEL 32 MMOL/L (20-31); CHLORIDE LEVEL 104 MMOL/L (98-107); CHOLESTEROL LEVEL 185 MG/DL (<200); CHOLESTEROL RISK RATIO 5.47 (<5); CREATININE FOR GFR 0.92 MG/DL (0.70-1.30); GLOMERULAR FILTRATION RATE > 60.0 (>49); GLUCOSE, FASTING 96 MG/DL (74-106); HDL CHOLESTEROL 33.8 MG/DL (>40); LDL CHOLESTEROL 95.6 MG/DL (<100); NON-HDL-C 151.2 MG/DL; POTASSIUM SERUM 4.5 MMOL/L (3.5-5.1); SODIUM LEVEL 142 MMOL/L (136-145); TRIGLYCERIDES LEVEL 278 MG/DL (<150)
== END ==
LOC: M PLALAB 08:47
PROVIDERS: ATTEND Family Medicine
DX: I10 Essential (primary) hypertension (principal); I11.0 Hypertensive heart disease with heart failure; I87.2 Venous insufficiency (chronic) (peripheral); E78.2 Mixed hyperlipidemia; R97.20 Elevated prostate specific antigen [PSA]; E55.9 Vitamin D deficiency, unspecified; Z79.899 Other long term (current) drug therapy

== ENCOUNTER → 2023-02-08 | Outpatient (CLI) | payer MEDICARE, OTHER | LOC: M PLAIMG 12:38 | PROVIDERS: ATTEND Family Medicine | DX: R91.8 Other nonspecific abnormal finding of lung field (principal); J43.2 Centrilobular emphysema; J84.10 Pulmonary fibrosis, unspecified; M47.814 Spondylosis without myelopathy or radiculopathy, thoracic region ==

== ENCOUNTER → 2023-02-19 | Outpatient (CLI) | payer MEDICARE, OTHER | LOC: M CARPUL 10:42 | PROVIDERS: ATTEND Family Medicine | DX: R06.09 Other forms of dyspnea (principal) ==

== ENCOUNTER → 2023-04-11 | Outpatient (CLI) | payer MEDICARE ==
[~2023-04-11] MED LIST changes: +METHACHOLINE KIT INH ONE
== END ==
LOC: M CARPUL 08:52
PROVIDERS: ATTEND Family Medicine
DX: R94.2 Abnormal results of pulmonary function studies (principal); R06.09 Other forms of dyspnea; J44.9 Chronic obstructive pulmonary disease, unspecified

== ENCOUNTER → 2023-08-10 | Outpatient (CLI) | payer MEDICARE ==
[~2023-08-10] MED LIST changes: -METHACHOLINE KIT INH ONE
== END ==
LOC: M PLAIMG 08:33
PROVIDERS: ATTEND Family Medicine
DX: R91.8 Other nonspecific abnormal finding of lung field (principal); Z95.0 Presence of cardiac pacemaker; J84.10 Pulmonary fibrosis, unspecified

== ENCOUNTER → 2023-08-10 | Outpatient (CLI) | payer MEDICARE | LOC: M WHC 08:34 | PROVIDERS: ATTEND Family Medicine | DX: F17.211 Nicotine dependence, cigarettes, in remission (principal); Z13.6 Encounter for screening for cardiovascular disorders ==

== ENCOUNTER 2024-04-10 06:42 | Day surgery (SDC) | payer MEDICARE ==
[~2024-04-10] VITALS: Ht 177.8 cm; Wt 99.6 kg
[~2024-04-10 06:42] MED LIST changes: +CARV25TA PO; +ENTR1TAB4 PO; +EZET10TA21 PO; +FINA5TAB2 PO; +FURO20TA2 PO; +MECL-209 PO; +NS 1,000 ML IV ONE; +PANT-23 PO; +PROA1AER2 INH; +TREL1AER INH; +VITA100093 PO
[2024-04-10] MEDS ORDERED: JARD1TAB PO (07:02)
[2024-04-10] MEDS ORDERED: LIDOCAINE 2% 100MG/5ML SDV (FOR ANES.) As Ordered ONE (07:05)
[2024-04-10] MEDS ORDERED: propofoL 200 MG/20 ML VIAL As Ordered ONE (07:05)
[2024-04-10 07:53] VITALS: TEMP 97.3
[2024-04-10 08:12] VITALS: BP 122/53; O2SAT 96
== END 2024-04-10 08:30 | disposition home or self-care (01) ==
LOC: M OPP 06:42
PROVIDERS: ATTEND Internal Medicine Gastroenterology
DX: Z86.010 Personal history of colon polyps (principal); K63.89 Other specified diseases of intestine; K64.8 Other hemorrhoids; K57.30 Diverticulosis of large intestine without perforation or abscess without bleeding; I50.9 Heart failure, unspecified; G47.30 Sleep apnea, unspecified; Z99.89 Dependence on other enabling machines and devices; Z95.810 Presence of automatic (implantable) cardiac defibrillator; Z79.02 Long term (current) use of antithrombotics/antiplatelets; Z79.51 Long term (current) use of inhaled steroids; Z79.82 Long term (current) use of aspirin; Z79.899 Other long term (current) drug therapy; Z91.030 Bee allergy status

== ENCOUNTER → 2024-07-30 | Outpatient (CLI) | payer MEDICARE ==
[~2024-07-30] MED LIST changes: +JARD1TAB PO; -NS 1,000 ML IV ONE
[2024-07-30 11:56] LABS: HEMATOCRIT 42.1 % (42.0-52.0); HEMOGLOBIN 13.1 g/dl (13.5-17.5); MEAN CORPUSCULAR HEMOGLOBIN 27.7 pg (27.0-33.0); MEAN CORPUSCULAR HGB CONC 31.1 g/dl (32.0-36.5); PLATELET COUNT, AUTOMATED 251 10^3/uL (150-450); RED BLOOD COUNT 4.73 10^6/uL (4.30-6.10)
[2024-07-30 12:29] LABS: ALBUMIN 3.8 G/DL (3.2-5.2); ALKALINE PHOSPHATASE 109 U/L (46-116); ALT/SGPT 24 U/L (7.0-40); AST/SGOT 15 U/L (<34); BILIRUBIN,TOTAL 0.5 MG/DL (0.3-1.2); BLOOD UREA NITROGEN 19 MG/DL (9-23); CALCIUM LEVEL 9.8 MG/DL (8.3-10.6); CARBON DIOXIDE LEVEL 30 MMOL/L (20-31); CHLORIDE LEVEL 105 MMOL/L (98-107); CHOLESTEROL LEVEL 185 MG/DL (<200); CHOLESTEROL RISK RATIO 5.78 (<5); CREATININE FOR GFR 0.91 MG/DL (0.70-1.30); GLOMERULAR FILTRATION RATE > 60.0 (>49); GLUCOSE, FASTING 88 MG/DL (74-106); LDL CHOLESTEROL 109.6 MG/DL (<100); POTASSIUM SERUM 4.6 MMOL/L (3.5-5.1); SODIUM LEVEL 142 MMOL/L (136-145); TOTAL PROTEIN 7.1 G/DL (5.7-8.2); TRIGLYCERIDES LEVEL 217 MG/DL (<150)
== END ==
LOC: M PLALAB 08:49
PROVIDERS: ATTEND Internal Medicine Cardiovascular Disease
DX: I42.8 Other cardiomyopathies (principal); E78.00 Pure hypercholesterolemia, unspecified

== ENCOUNTER → 2024-07-30 | Outpatient (CLI) | payer MEDICARE | LOC: M PLALAB 08:46 | PROVIDERS: ATTEND Family Medicine | DX: E55.9 Vitamin D deficiency, unspecified (principal) ==

== ENCOUNTER → 2025-08-10 | Outpatient (CLI) | payer MEDICARE ==
[~2025-08-10] MED LIST changes: -EZET10TA21 PO; +EZET10TA57 PO
[2025-08-10 13:48] LABS: ALT/SGPT 28.0 U/L (7.0-40); AST/SGOT 25.0 U/L (<34); CALCIUM LEVEL 9.4 MG/DL (8.3-10.6); CARBON DIOXIDE LEVEL 29.0 MMOL/L (20-31); CHLORIDE LEVEL 105.0 MMOL/L (98-107); CHOLESTEROL LEVEL 170.0 MG/DL (<200); CHOLESTEROL RISK RATIO 4.8 (<5); CREATININE FOR GFR 1.03 MG/DL (0.70-1.30); GLOMERULAR FILTRATION RATE 79.6 (>49); LDL CHOLESTEROL 96.8 MG/DL (<100); NON-HDL-C 134.6 MG/DL; POTASSIUM SERUM 4.5 MMOL/L (3.5-5.1); PSA SCREENING 4.0 NG/ML (< 4.00); SODIUM LEVEL 142.0 MMOL/L (136-145); TRIGLYCERIDES LEVEL 189.0 MG/DL (<150)
[2025-08-10 13:49] LABS: TOTAL 25(OH) VITAMIN D 56.4 NG/ML (20.0-100.0)
== END ==
LOC: M PLALAB 10:10
PROVIDERS: ATTEND Family Medicine
DX: E55.9 Vitamin D deficiency, unspecified (principal); R97.20 Elevated prostate specific antigen [PSA]; I11.0 Hypertensive heart disease with heart failure; I50.20 Unspecified systolic (congestive) heart failure; Z12.5 Encounter for screening for malignant neoplasm of prostate
CPT/HCPCS: 36415; 80053; 80061; 82306; G0103